=== PATIENT | male | born 1985 | race Caucasian/White ===

== ENCOUNTER → 2016-08-15 16:16 | Emergency (ER) | payer SELFPAY ==
[2016-08-15 17:42] VITALS: BP 140/76
== END | disposition left against medical advice (07) ==
LOC: ED 16:16
DX: M54.2 Cervicalgia (principal); Z53.21 Procedure and treatment not carried out due to patient leaving prior to being seen by health care provider

== ENCOUNTER 2017-04-06 19:05 | Emergency (ER) | payer SELFPAY ==
--- NOTE | 2017-04-06 21:28 | RAD ---
INDICATION: Right knee pain COMPARISON: January 26, 2016 TECHNIQUE: AP, lateral, tunnel, and sunrise views were obtained. FINDINGS: The bony structures, joint spaces, and soft tissues are normal for age. IMPRESSION: NEGATIVE EXAMINATION.
[2017-04-06 21:58] VITALS: BP 126/76
--- NOTE | 2017-04-06 22:17 | ED ---
Lower Extremity - HPI Summary HPI Summary: Patient presents to the ED with CC of right knee pain. He states he was getting out of bed this afternoon (3 hours prior to arrival) and hooked the posterior part of his knee onto the edge of the bed and pulled the knee. He sustained an abrasion to the posterior knee and has not been able to walk since that time. He has injured the knee 10 years ago with a meniscal repair. He denies any and all other symptoms. Denies pain in the ankle, the thigh or the hips. He is a smoker, but is otherwise healthy. He denies numbness, tingling, color or temperature changes to the knee. Denies swelling. Pulses +2 bilaterally and cap refill < 2 sec. - History of Current Complaint Chief Complaint: EDExtremityLower Stated Complaint: RT KNEE INJURY Time Seen by Provider: 04/06/17 20:40 Hx Obtained From: Patient, Family/Critical Care Transport Nurse Mechanism Of Injury: Twisted Onset of Pain: Immediate Onset/Duration: Minutes Severity Initially: Moderate Severity Currently: Moderate Pain Intensity: 6 Pain Scale Used: 0-10 Numeric Timing: Constant Location: Is Discrete @ - posterior right knee Associated Signs And Symptoms: Positive: Bruising Alleviating Factor(s): Rest Able to Bear Weight: No - Risk Factors Gout Risk Factors: Male DVT Risk Factors: Negative Septic Arthritis Risk Factor: Negative - Allergies/Home Medications Allergies/Adverse Reactions: Allergies Allergy/AdvReac Type Severity Reaction Status Date / Time Amoxicillin Allergy Hives Verified 04/06/17 19:49 Penicillins Allergy Hives Verified 04/06/17 19:49 PMH/Surg Hx/FS Hx/Imm Hx Previously Healthy: Yes GI History: Reports: Hx Gall Bladder Disease - cholecystectomy - Surgical History Surgery Procedure, Year, and Place: CHOLECYSTECTOMY - Immunization History Hx Pertussis Vaccination: No Immunizations Up to Date: Unable to Obtain/Confirm Infectious Disease History: No Infectious Disease History: Denies: Traveled Outside the [place] in Last 30 Days - Family History Known Family History: Positive: Other - Stroke - Social History Occupation: Employed Full-time Lives: With Family Alcohol Use: Weekly Hx Substance Use: Yes Substance Use Type: Reports: Marijuana Substance Use Comment - Amount & Last Used: daily Hx Tobacco Use: Yes Smoking Status (MU): Heavy Every Day Tobacco Smoker Amount Used/How Often: 1 PPD Have You Smoked in the Last Year: Yes Review of Systems Constitutional: Negative Negative: Fever, Chills, Fatigue Eyes: Negative Respiratory: Negative Gastrointestinal: Negative Positive: no symptoms reported, see HPI Positive: Arthralgia, Myalgia Positive: Other - abrasion Neurological: Negative Psychological: Normal All Other Systems Reviewed And Are Negative: Yes Physical Exam Triage Information Reviewed: Yes Vital Signs On Initial Exam: Initial Vitals Temp Pulse Resp BP Pulse Ox 98.4 F 78 16 101/83 97 04/06/17 19:40 04/06/17 19:40 04/06/17 19:40 04/06/17 19:40 04/06/17 19:40 Vital Signs Reviewed: Yes Appearance: Positive: Well-Appearing, Well-Nourished Skin: Positive: Warm, Skin Color Reflects Adequate Perfusion, Other - abrasion to the posterior knee Head/Face: Positive: Normal Head/Face Inspection Eyes: Positive: EOMI, SOO, Conjunctiva Clear Neck: Positive: Supple, No Lymphadenopathy Respiratory/Lung Sounds: Positive: Clear to Auscultation, Breath Sounds Present Cardiovascular: Positive: RRR, Pulses are Symmetrical in both Upper and Lower Extremities Musculoskeletal: Positive: Pain @ - right posterior knee, Other - posterior knee pain with abrasion - unable to flex or extend d/t pain. Slight swelling noted. Neurological: Positive: Speech Normal Psychiatric: Positive: Normal Diagnostics - Vital Signs Vital Signs Temp Pulse Resp BP Pulse Ox 04/06/17 21:57 98.5 F 77 16 126/76 99 04/06/17 19:40 98.4 F 78 16 101/83 97 - Laboratory Lab Statement: Any lab studies that have been ordered have been reviewed, and results considered in the medical decision making process. Lower Extremity Course/Dx - Course Course Of Treatment: Due to patient pain around injury, physical exam was limited. Valgus and varus force without pain. No posterior sag sign, - posterior drawer test, - anterior drawer test. Quadriceps active test negative. Mcmurrys test not performed d/t patients instability. No laxity in the joint noted. No temperature change or pallor noted bilaterally. No ecchymosis noted over knee. No lesion or disruption of skin is seen. Unable to bear weight. Pulses intact bilaterally. No swelling or crepitus is noted. Since he is unable to bear weight, I have advised a knee immobilizer and crutches. He is to follow up with ortho. I have discussed the limitations of an xray and to further assess the extent of his injuries, he may need further imaging and an ortho consult. He is given referral. Treatment options explained to patient. Patient understands the plan, voices no concerns at this time and understands the return precatuions given to them if they develop any worsening or changing symptoms. They are OK for discharge at this time. VS stable on discharge. Primary care follow up as agreed on discharge. - Diagnoses Provider Diagnoses: Abrasion, Knee pain Discharge - Discharge Plan Condition: Stable Disposition: HOME Patient Education Materials: Knee Pain (ED) Referrals: Cesar Orr MD [Medical Doctor] - Cesar Xiong MD [Primary Care Provider] - Additional Instructions: Ibuprofen 600mg three times daily Ice to the area Knee immobilizer Crutches Bear weight as tolerated unless you are continuing to have pain
== END 2017-04-06 21:57 | disposition home or self-care (01) ==
LOC: ED 19:05
DX: S80.211A Abrasion, right knee, initial encounter (principal); M25.561 Pain in right knee; W22.8XXA Striking against or struck by other objects, initial encounter; Y92.9 Unspecified place or not applicable; F17.210 Nicotine dependence, cigarettes, uncomplicated
CPT/HCPCS: 99282

== ENCOUNTER 2017-10-01 08:00 | Emergency (ER) | payer SELFPAY ==
[2017-10-01] MEDS ORDERED: Lidocaine 2% VISCOUS* 15 ML UDC PO ONE (08:15)
[2017-10-01] MEDS ORDERED: Al Hydrox/Mg Hydrox/Simet LIQ* 30 ML UDC PO ONE (08:15)
[2017-10-01] MEDS ORDERED: Ondansetron ODT TAB* 4 MG PO ONE (08:16)
[2017-10-01 08:36] LABS: ABS Basophils 0 10^3/ul (0-0.2); ABS Eosinophils 0.2 10^3/ul (0-0.6); ABS Lymphocytes 1.8 10^3/ul (1.0-4.8); ABS Monocytes 0.8 10^3/ul (0-0.8); ABS Neutrophils 11.3 10^3/ul (1.5-7.7); ABS Nucleated RBC 0 10^3/ul; Eosinophil % 1.1 % (0-6); Hematocrit 45 % (42-52); Hemoglobin 15.1 g/dl (14.0-18.0); Lymphocyte % 12.6 % (25-47); Mean Corpuscular HGB Conc 34 g/dl (31-36); Mean Corpuscular Hemoglobin 30 pg (27-31); Mean Corpuscular Volume 90 fL (80-94); Mean Platelet Volume 8.3 um3 (7.4-10.4); Nucleated Red Blood Cells % 0; Platelet Count 242 10^3/ul (150-450); Red Blood Count 4.97 10^6/ul (4.00-5.40); Red Cell Distribution Width 14 % (10.5-15)
--- NOTE | 2017-10-01 08:46 | ED ---
Abdominal Pain/Male - HPI Summary HPI Summary: Patient is a 32-year-old male who presents emergency department for epigastric abdominal pain, nausea and vomiting. History from patient is limited during exam given his nausea and dry heaving. History was obtained from patient's family member. She notes that patient has been having epigastric pain and nausea and vomiting over the last 4 years. Clinically diagnosed with a "ulcer. " Has not seen GI for endoscopy. Patient reportedly has been to the ER numerous times for this complaint. Patient states he was prescribed medication for systemic states he is unable to afford them and is currently not taking any medications. Symptoms are moderate in severity. No current modifying factors. - History of Current Complaint Chief Complaint: EDAbdPain Stated Complaint: NAUSEA/VOMITING Time Seen by Provider: 10/01/17 08:06 Hx Obtained From: Patient, Family/Validation Intern Pain Intensity: 10 - Allergies/Home Medications Allergies/Adverse Reactions: Allergies Allergy/AdvReac Type Severity Reaction Status Date / Time amoxicillin Allergy Hives Verified 10/01/17 08:04 Penicillins Allergy Hives Verified 10/01/17 08:04 PMH/Surg Hx/FS Hx/Imm Hx Previously Healthy: Yes GI History: Reports: Hx Gall Bladder Disease - cholecystectomy - Surgical History Surgery Procedure, Year, and Place: CHOLECYSTECTOMY Infectious Disease History: No Infectious Disease History: Denies: Traveled Outside the [place] in Last 30 Days - Family History Known Family History: Positive: Other - Stroke - Social History Occupation: Works From/At Home Lives: With Family Alcohol Use: Weekly Hx Substance Use: Yes Substance Use Type: Reports: Marijuana Substance Use Comment - Amount & Last Used: daily Hx Tobacco Use: Yes Smoking Status (MU): Heavy Every Day Tobacco Smoker Amount Used/How Often: 1 PPD Have You Smoked in the Last Year: Yes Review of Systems Constitutional: Negative Cardiovascular: Negative Respiratory: Negative Positive: Abdominal Pain, Vomiting, Nausea. Negative: Diarrhea Neurological: Negative All Other Systems Reviewed And Are Negative: Yes Physical Exam Triage Information Reviewed: Yes Vital Signs On Initial Exam: Initial Vitals Temp Pulse Resp BP Pulse Ox 96.5 F 88 16 145/86 94 10/01/17 08:01 10/01/17 08:01 10/01/17 08:01 10/01/17 08:01 10/01/17 08:01 Vital Signs Reviewed: Yes Appearance: Positive: Pain Distress - Pt. sitting on bed spitting into a bucket. Family member present. Skin: Positive: Warm, Dry Head/Face: Positive: Normal Head/Face Inspection Eyes: Positive: Normal Neck: Positive: Supple Neurological: Positive: Normal, CN Intact II-III Psychiatric: Positive: Affect/Mood Appropriate Diagnostics - Vital Signs Vital Signs Temp Pulse Resp BP Pulse Ox 10/01/17 08:01 96.5 F 88 16 145/86 94 - Laboratory Lab Results: Lab Results 10/01/17 Range/Units 08:20 WBC 14.0 H (3.5-10.8) 10^3/ul RBC 4.97 (4.00-5.40) 10^6/ul Hgb 15.1 (14.0-18.0) g/dl Hct 45 (42-52) % MCV 90 (80-94) fL MCH 30 (27-31) pg MCHC 34 (31-36) g/dl RDW 14 (10.5-15) % Plt Count 242 (150-450) 10^3/ul MPV 8.3 (7.4-10.4) um3 Neut % (Auto) 80.3 (38-83) % Lymph % (Auto) 12.6 L (25-47) % [place] % (Auto) 5.7 (0-7) % Eos % (Auto) 1.1 (0-6) % Baso % (Auto) 0.3 (0-2) % Absolute Neuts (auto) 11.3 H (1.5-7.7) 10^3/ul Absolute Lymphs (auto) 1.8 (1.0-4.8) 10^3/ul Absolute Monos (auto) 0.8 (0-0.8) 10^3/ul Absolute Eos (auto) 0.2 (0-0.6) 10^3/ul Absolute Basos (auto) 0 (0-0.2) 10^3/ul Absolute Nucleated RBC 0 10^3/ul Nucleated RBC % 0 Result Diagrams: 10/01/17 08:20 10/01/17 08:20 Lab Statement: Any lab studies that have been ordered have been reviewed, and results considered in the medical decision making process. Abdominal Pain Fem Course/Dx - Course Course Of Treatment: Pt. presenting to the ER for exacerbation of chronic N/V and epigastric pain. Afebrile with stable vital signs. Initial exam was limited due to pt.'s discomfort and lack of cooperation. Pt. is requesting zofran and GI cocktail as those have improved his sx in the past. Will check basic labs and reassess. Pt.'s family member states that he has been seen at [facility] numerous times this week for the same complaint. Labs are unremarkable other than WBC of 15k, suscept stress reaction. Pt. had no relief of pain after zofran and GI cocktail. Pt. can be heard yelling and cursing from his room. He is very agitated and is still dry heaving. Phenergan was ordered but patient declined stating he did not want to take anything else PO and requested an IV. IV was placed and fluids were started. Reglan ordered. Case discussed with Dr. Najera who recommend ativan. Ativan was ordered but pt. fell asleep prior to receiving ativan. Pt. slept in the ER for about an hour. I woke him up and he stated he was feeling better. Will dc home with rx for omeprazole and reglan. Strongly advised to call PCP tomorrow for an apt. and referral to GI if symptoms change or worsen. Pt. and family understand and agree with plan. - Diagnoses Differential Diagnosis/HQI/PQRI: Appendicitis, Bowel Obstruction, Constipation, Gall Bladder Disease, Hepatitis, Ischemic Bowel, Pancreatitis Provider Diagnoses: Cyclic vomiting syndrome, GERD (gastroesophageal reflux disease) Discharge - Sign-Out/Discharge Documenting (check all that apply): Discharge/Admit/Transfer - Discharge Plan Condition: Good Disposition: HOME Prescriptions: Metoclopramide TAB* [Reglan TAB*] 10 mg PO Q6H #12 tab Omeprazole CAP* [Prilosec CAP* 20 MG] 20 mg PO DAILY #30 jose rafael. Patient Education Materials: Gastroesophageal Reflux Disease (ED), Cyclic Vomiting Syndrome (ED) Referrals: Tyrese RILEY,Cesar Beaulieu [Primary Care Provider] - Additional Instructions: Call your PCP tomorrow for an appointment Take medication as directed Return to ER if symptoms change or worsen - Billing Disposition and Condition Condition: GOOD Disposition: Home
[2017-10-01 08:53] LABS: EGFR Non-African American 123.7 (>60)
[2017-10-01] MEDS ORDERED: Promethazine TAB* 25 MG PO ONE (09:24)
[2017-10-01] MEDS ORDERED: Metoclopramide IV* 5 MG/ML 2 ML VIAL IV ONE (09:53)
[2017-10-01] MEDS ORDERED: NS 0.9% 1000 ML* 1,000 ML IV ONE ×2 (09:53→10:14)
[2017-10-01] MEDS ORDERED: Metoclopramide IV* 5 MG/ML 2 ML VIAL ONE (09:54)
[2017-10-01] MEDS ORDERED: LORazepam INJ* 2 MG/ML 1 ML VIAL IV PUSH ONE ×2 (10:13→10:15)
[2017-10-01 13:02] VITALS: BP 123/82
== END 2017-10-01 12:45 | disposition home or self-care (01) ==
LOC: ED 08:00
DX: G43.A0 Cyclical vomiting, in migraine, not intractable (principal); K21.9 Gastro-esophageal reflux disease without esophagitis; F17.200 Nicotine dependence, unspecified, uncomplicated; Z88.3 Allergy status to other anti-infective agents; Z88.0 Allergy status to penicillin
CPT/HCPCS: 36415; 80053; 83690; 85025; 96360; 96361; 99283; A9270-GY; J2765

== ENCOUNTER 2017-11-27 16:37 | Emergency (ER) | payer SELFPAY ==
[2017-11-27 17:48] VITALS: BP 112/82
== END 2017-11-27 18:53 | disposition left against medical advice (07) ==
LOC: ED 16:37
DX: R11.2 Nausea with vomiting, unspecified (principal); Z53.21 Procedure and treatment not carried out due to patient leaving prior to being seen by health care provider
CPT/HCPCS: 99281

== ENCOUNTER 2018-05-23 06:46 | Emergency (ER) | payer MEDICAID ==
[2018-05-23] MEDS ORDERED: Al Hydrox/Mg Hydrox/Simet LIQ* 30 ML UDC PO ONE (07:01)
[2018-05-23] MEDS ORDERED: Lidocaine 2% VISCOUS* 15 ML UDC PO ONE (07:01)
[2018-05-23] MEDS ORDERED: Ondansetron TAB* 4 MG PO ONE (07:02)
--- NOTE | 2018-05-23 07:09 | ED ---
Abdominal Pain/Male - HPI Summary HPI Summary: Pt. is a 32 y.o male who presents to the ER for epigastric pain, N/V, and CP. Pt. states he started with epigastric pain and vomiting last night. Pt. states today he developed diffuse CP. Pt. has had similar sxs in the past. Pt. notes daily THC smoking. He denies recent ETOH use. Pt. otherwise denies past medical hx. Symptoms are moderate in severity. - History of Current Complaint Chief Complaint: EDChestWallPain Stated Complaint: CHEST PAIN/VOMITING Time Seen by Provider: 05/23/18 06:55 Hx Obtained From: Patient Pain Intensity: 10 - Allergies/Home Medications Allergies/Adverse Reactions: Allergies Allergy/AdvReac Type Severity Reaction Status Date / Time amoxicillin Allergy Hives Verified 11/27/17 17:48 Penicillins Allergy Hives Verified 11/27/17 17:48 PMH/Surg Hx/FS Hx/Imm Hx Previously Healthy: Yes GI History: Reports: Hx Gall Bladder Disease - cholecystectomy - Surgical History Surgery Procedure, Year, and Place: CHOLECYSTECTOMY Infectious Disease History: No Infectious Disease History: Denies: Traveled Outside the [place] in Last 30 Days - Family History Known Family History: Positive: Other - Stroke, Non-Contributory - Social History Occupation: Unemployed Lives: With Family Alcohol Use: Weekly Hx Substance Use: Yes Substance Use Type: Reports: Marijuana Substance Use Comment - Amount & Last Used: daily Hx Tobacco Use: Yes Smoking Status (MU): Heavy Every Day Tobacco Smoker Amount Used/How Often: 1 PPD Have You Smoked in the Last Year: Yes Review of Systems Constitutional: Negative Negative: Fever, Chills Positive: Chest Pain Respiratory: Negative Positive: Abdominal Pain, Vomiting, Diarrhea, Nausea Neurological: Negative All Other Systems Reviewed And Are Negative: Yes Physical Exam Triage Information Reviewed: Yes Vital Signs On Initial Exam: Initial Vitals Temp Pulse Resp BP Pulse Ox 99 F 100 20 125/88 99 05/23/18 06:49 05/23/18 06:49 05/23/18 06:49 05/23/18 06:49 05/23/18 06:49 Vital Signs Reviewed: Yes Appearance: Positive: Pain Distress - Pt. rolling around on the stretcher. Pt. is not cooperative for exam. Demanding a drink as soon as I walked into room Skin: Positive: Warm, Dry Head/Face: Positive: Normal Head/Face Inspection Neck: Positive: Supple Abdomen Description: Positive: Other: - Abd. is soft with epigastric pain. No rebound tenderness or guarding. No pain at mcburney's point. Neurological: Positive: Normal, CN Intact II-III Psychiatric: Positive: Affect/Mood Appropriate Diagnostics - Vital Signs Vital Signs Temp Pulse Resp BP Pulse Ox 05/23/18 06:49 99 F 100 20 125/88 99 - Laboratory Result Diagrams: 05/23/18 07:21 05/23/18 07:21 Lab Statement: Any lab studies that have been ordered have been reviewed, and results considered in the medical decision making process. Abdominal Pain Male Course/Dx - Course Course Of Treatment: Pt. presenting eipigastric pain, N/V, and CP. Exam is very limited due to pt. not cooperating. Pt. demanding a drink. Pt. also demanding a GI cocktail stating this has helped in the past. Will check basic labs and ECG. PO zofran and GI cocktail ordered. ECG done at 07 shows a sinus rhythm of 79bpm, normal axis, no ST elevation or depression. 09: Pt. re-examined and is dry heaving and states he is having a lot epigastric pain. Pt. states he was feeling better after initial medication but his sxs have return. Will given him a dose of compazine and ativan. Labs show mild leukocytosis. Pt.'s sxs again improved. Will dc home with rx for antiemetic and protonix. Pt. notes he has seen GI in the past and strongly adivsed to call his GI for a close f.u apt as well as PCP. Advised to avoid drug and etoh use. Will return if sxs change or worsen. - Diagnoses Differential Diagnosis/HQI/PQRI: Appendicitis, Bowel Obstruction, Constipation, Gall Bladder Disease, Hepatitis, Pancreatitis, Peptic Ulcer Disease Provider Diagnoses: Cyclical vomiting Discharge - Sign-Out/Discharge Documenting (check all that apply): Patient Departure Patient Received Moderate/Deep Sedation with Procedure: No - Discharge Plan Condition: Improved Disposition: HOME Prescriptions: Pantoprazole TAB * [Protonix TAB*] 40 mg PO DAILY #14 tab Promethazine TAB* [Phenergan TAB*] 25 mg PO Q6H PRN #12 tab PRN Reason: Nausea Patient Education Materials: Acute Nausea and Vomiting (ED), Cyclic Vomiting Syndrome (ED) Referrals: Tyrese RILEY,Cesar Beaulieu [Primary Care Provider] - Additional Instructions: Call your PCP and GI doctor today to schedule a follow up appointment in 1-2 days Take medication as directed Avoid drug and alcohol use Return to ER if symptoms change or worsen - Billing Disposition and Condition Condition: IMPROVED Disposition: Home
[2018-05-23] MEDS ORDERED: NS 0.9% 1000 ML** 1,000 ML IV ONE (07:20)
[2018-05-23 07:32] LABS: ABS Basophils 0 10^3/ul (0-0.2); ABS Eosinophils 0 10^3/ul (0-0.6); ABS Lymphocytes 0.9 10^3/ul (1.0-4.8); ABS Monocytes 0.4 10^3/ul (0-0.8); ABS Neutrophils 10.3 10^3/ul (1.5-7.7); ABS Nucleated RBC 0 10^3/ul; Eosinophil % 0 %; Hematocrit 48 % (42-52); Hemoglobin 16.5 g/dl (14.0-18.0); Lymphocyte % 7.8 %; Mean Corpuscular HGB Conc 34 g/dl (31-36); Mean Corpuscular Hemoglobin 31 pg (27-31); Mean Corpuscular Volume 91 fL (80-94); Mean Platelet Volume 8.3 fL (7.4-10.4); Nucleated Red Blood Cells % 0; Platelet Count 263 10^3/ul (150-450); Red Blood Count 5.33 10^6/ul (4.00-5.40); Red Cell Distribution Width 14 % (10.5-15); White Blood Count 11.7 10^3/ul (3.5-10.8)
[2018-05-23 07:52] LABS: ALT 31 U/L (7-52); AST 15 U/L (13-39); Albumin 4.8 g/dL (3.2-5.2); Albumin/Globulin Ratio 1.8 (1-3); Alkaline Phosphatase 82 U/L (34-104); Anion Gap 13 mmol/L (2-11); BUN/Creatinine Ratio 19.5 (8-20); Blood Urea Nitrogen 16 mg/dL (6-24); C Reactive Protein 2.65 mg/L (<8.01); CO2 Carbon Dioxide 21 mmol/L (22-32); Calcium 10.3 mg/dL (8.6-10.3); Chloride 104 mmol/L (101-111); EGFR African American 130.9 (>60); EGFR Non-African American 108.2 (>60); Globulin 2.7 g/dL (2-4); Glucose 160 mg/dL (70-100); Potassium 3.6 mmol/L (3.5-5.0); Sodium 138 mmol/L (135-145); Total Protein 7.5 g/dL (6.4-8.9)
[2018-05-23] MEDS ORDERED: LORazepam INJ* 2 MG/ML 1 ML VIAL IV PUSH ONE (09:29)
[2018-05-23] MEDS ORDERED: PROCHLORPERAZINE INJ 5 MG/ML 2 ML VIAL IV ONE (09:29)
[2018-05-23 11:34] VITALS: BP 137/79
== END 2018-05-23 11:33 | disposition home or self-care (01) ==
LOC: ED 06:46
DX: G43.A0 Cyclical vomiting, in migraine, not intractable (principal); R10.13 Epigastric pain; R07.9 Chest pain, unspecified; Z88.0 Allergy status to penicillin; F17.210 Nicotine dependence, cigarettes, uncomplicated; R19.7 Diarrhea, unspecified
CPT/HCPCS: 36415; 80053; 83605; 83690; 84484; 85025; 86140; 93005; 96361; 96374; 96375; 99283; A9270-GY; J0780; J2060

== ENCOUNTER 2018-06-12 09:18 | Emergency (ER) | payer MEDICAID, OTHER ==
--- OUTSIDE RECORDS SUMMARY | 2018-06-12 09:26 | XMS REPORT | Continuity of Care Document ---
:1985 External Reference #:[id number] Author Name Leah Hernandez Care Team Providers Name Role Phone Cesar Xiong MD Primary Care Physician Unavailable Payers Date Identification Numbers Payment Provider Subscriber Effective: 2018 Policy Number: [id number] Medicaid [employer] Name: 1 1 [address] PayID: [id number] [place] [address] Expires: 2018 Policy Number: [id number] Seun [employer] Group Name: [id number] [address] PayID: [id number] [place] [address] Advance Directives Description No Information Available Problems Description No Information Family History Date Family Member(s) Observation Comments Mother Allergy to Eggs Social History Type Date Description Comments Sex Unknown Marital Status Significant Other Occupation Unemployed Tobacco Use Start: Unknown current cigarette smoker Smoking Status Reviewed: 05/25/18 current cigarette smoker ETOH Use Currently consumes alcohol Tobacco Use Start: Unknown Patient is a current smoker, smokes every day Recreational Drug Use Current Drug User Recreational Drug Use Regularly uses Marijuana Exercise Type/Frequency Exercises rarely Allergies, Adverse Reactions, Alerts Date Description Reaction Status Severity Comments 05/25/2018 Amoxicillin Active 05/25/2018 Penicillin Active Medications Medication Date Status Form Strength Qnty SIG Indications Ordering Provider Lidocaine 05/25/ Active Solution 2% 15ml as needed Mary Viscous 2019 AISHWARYA Elder Pantoprazole 05/25/ Active Tablets DR 40mg 30tabs take as Mary Sodium 2019 directed AISHWARYA Elder 30 minutes prior to meal once a day Ranitidine 150 05/25/ Active Tablets 150mg 180tab take Mary Maximum Strength 2019 s nightly AISHWARYA Elder Carafate 05/25/ Active Suspension 1GM/10ML 420ml 1 gram Mary 2019 (10 mL) AISHWARYA Elder four times per day on empty stomach as needed Promethazine HCL / Active Unknown 0000 Mylanta / Active Unknown 0000 Tums / Active Chewtabs 500mg 2 as Unknown 0000 needed for acid stomach Famotidine / Active Unknown 0000 Lidoderm / Active Unknown 0000 Lorazepam / Active as needed Unknown 0000 Metoclopramide / Active Unknown HCL 0000 Pantoprazole / Hx Unknown Sodium - 2018 Omeprazole / Hx Unknown - 2018 Immunizations Description No Information Available Vital Signs Date Vital Result Comment 05/25/2018 3:13pm Height 70 inches 5'10" Weight 180.00 lb Heart Rate 54 /min BP Systolic Sitting 112 mmHg BP Diastolic Sitting 70 mmHg Respiratory Rate 18 /min Body Temperature 95.8 F tympanic BMI (Body Mass Index) 25.8 kg/m2 Results Description No Information Available Procedures Description No Information Available Encounters Description No Information Available Plan of Treatment Future Appointment(s):06/11/2018 3:30 pm - Mary Elder NP at [facility] Gastroenterology
--- OUTSIDE RECORDS SUMMARY | 2018-06-12 09:26 | XMS REPORT | Continuity of Care Document ---
:1985 External Reference #:[id number] Author Name Leah Hernandez Care Team Providers Name Role Phone Cesar Xiong MD Primary Care Physician Unavailable Payers Date Identification Numbers Payment Provider Subscriber Effective: 2018 Policy Number: [id number] Medicaid [employer] Name: 1 1 [address] PayID: [id number] [place] [address] Expires: 2018 Policy Number: [id number] Seun [employer] Group Name: [id number] [address] PayID: [id number] [place] [address] Advance Directives Description No Information Available Problems [...] 05/25/ Active Suspension 1GM/10ML 420ml 1 gram aMry 2019 (10 mL) AISHWARYA Elder four times [...] 3:30 pm - Mary Elder NP at [facility]
[2018-06-12 10:18] VITALS: BP 121/71
--- NOTE | 2018-06-12 10:26 | UC ---
General HPI - HPI Summary HPI Summary: States he had blood work drawn 3 weeks ago in his left wrist - states it was painful when they were drawing blood and he asked them to stop but they continued. He has had pain and lumps over his forearm since then. He tried heat and ice for a few days but then gave up. States for the past few days, he has had pain with difficulty using his left hand. No fever. No n/V. Otherwise acting well. No change in sensation. Meds; REviewed - History of Current Complaint Chief Complaint: UCUpperExtremity Stated Complaint: WRIST PAIN Time Seen by Provider: 06/12/18 10:03 Pain Intensity: 9 - Allergy/Home Medications Allergies/Adverse Reactions: Allergies Allergy/AdvReac Type Severity Reaction Status Date / Time amoxicillin Allergy Hives Verified 06/12/18 09:48 Penicillins Allergy Hives Verified 06/12/18 09:48 Home Medications: Home Medications Famotidine 10 mg PO DAILY 06/12/18 [History Confirmed 06/12/18] Promethazine HCl 25 mg PO DAILY 06/12/18 [History Confirmed 06/12/18] Sucralfate [Carafate] 1 tab PO DAILY 06/12/18 [History Confirmed 06/12/18] raNITIdine HCl [Ranitidine HCl] 1 tab PO DAILY 06/12/18 [History Confirmed 06/12] PMH/Surg Hx/FS Hx/Imm Hx Previously Healthy: Yes GI/ History: Gastroesophageal Reflux - Surgical History Surgical History: Yes Surgery Procedure, Year, and Place: CHOLECYSTECTOMY. T&A. knee surgery - Family History Known Family History: Positive: Other - Stroke - Social History Alcohol Use: Weekly Substance Use Type: Marijuana Substance Use Comment - Amount & Last Used: daily Smoking Status (MU): Heavy Every Day Tobacco Smoker Amount Used/How Often: 1 PPD Have You Smoked in the Last Year: Yes Household Exposure Type: Cigarettes Review of Systems All Other Systems Reviewed And Are Negative: Yes Physical Exam Triage Information Reviewed: Yes Appearance: Well-Appearing Vital Signs: Initial Vital Signs Temp 97.8 F 06/12/18 09:41 Pulse 68 06/12/18 09:41 Resp 18 06/12/18 09:41 BP 121/71 06/12/18 09:41 Pulse Ox 96 06/12/18 09:41 Vital Signs Reviewed: Yes Eyes: Positive: Conjunctiva Clear Musculoskeletal: Positive: Other: - left hand - firmness/ropiness over two areas of superficial veins over dorsum of wrist and forearm. No signifcant edema, mild erythema and pain to the touch. Pain with hand rail transportation tabeler. No sensation deficit. Course/Dx - Course Course Of Treatment: This is a 32 yr old with pain since he had labs drawn over left wrist Assessment Superficial thrombophlebitis - possible secondary cellulitis Discussed getting an ultrasound but low yield. Patient did not want to wait for ultrasound. Plan Recommend heat or ice - whichever one provides the most relief at least 3x/day Recommend topical diclofenac as prescribed for pain Recommend keflex as prescribed for possible secondary infection If pain persists, recommend following up with Orthopedic hand surgeon - Diagnoses Provider Diagnosis: Superficial thrombophlebitis, Cellulitis Discharge - Sign-Out/Discharge Documenting (check all that apply): Patient Departure All imaging exams completed and their final reports reviewed: No Studies - Discharge Plan Condition: Good Disposition: HOME Prescriptions: Cephalexin CAP* [Keflex CAP*] 500 mg PO QID #28 cap Diclofenac Epolamine [Flector] 1 each TD BID #1 patch.[id number] Patient Education Materials: Superficial Thrombophlebitis (ED), Cellulitis (ED) Referrals: No Primary Care Phys,NOPCP [Primary Care Provider] - Additional Instructions: Recommend heat or ice - whichever one provides the most relief at least 3x/day Recommend topical diclofenac as prescribed for pain Recommend keflex as prescribed for possible secondary infection If pain persists, recommend following up with Orthopedic hand surgeon at [facility] [phone] - Billing Disposition and Condition Condition: GOOD Disposition: Home
== END 2018-06-12 10:43 | disposition home or self-care (01) ==
LOC: UCEAST 09:18
DX: I80.8 Phlebitis and thrombophlebitis of other sites (principal); L03.114 Cellulitis of left upper limb; K21.9 Gastro-esophageal reflux disease without esophagitis; F17.210 Nicotine dependence, cigarettes, uncomplicated; Z79.899 Other long term (current) drug therapy; Z88.0 Allergy status to penicillin
CPT/HCPCS: 99212; G0463

== ENCOUNTER 2018-06-17 08:38 | Emergency (ER) | payer MEDICAID ==
[2018-06-17] MEDS ORDERED: NS 0.9% 1000 ML** 1,000 ML IV ONE ×3 (08:53→10:38)
[2018-06-17] MEDS ORDERED: Ketorolac INJ* 30 MG/ML 1 ML VIAL IV PUSH ONE (08:53)
[2018-06-17] MEDS ORDERED: Ondansetron INJ* 2 MG/ML VIAL IV ONE ×2 (08:53→11:29)
[2018-06-17] MEDS ORDERED: Al Hydrox/Mg Hydrox/Simet LIQ* 30 ML UDC PO ONE (08:54)
[2018-06-17] MEDS ORDERED: Famotidine IV* 10 MG/ML 2 ML (20 mg) IV SLOW PU ONE (08:54)
[2018-06-17 09:14] LABS: Influenza A Molecular NEGATIVE (Negative); Influenza B Molecular NEGATIVE (Negative)
[2018-06-17 09:38] LABS: Hematocrit 47 % (36-46); Hemoglobin 16.1 g/dL (14.0-18.0); Mean Corpuscular HGB Conc 34 g/dL (31-36); Mean Corpuscular Hemoglobin 31 pg (27-31); Mean Corpuscular Volume 90 fL (80-94); Mean Platelet Volume 8.5 fL (7.4-10.4); Platelet Count 268 10^3/uL (150-450); Red Blood Count 5.23 10^6 /uL (4.18-5.48); Red Cell Distribution Width 14 % (10.5-15); White Blood Count 14.4 10^3/uL (3.5-10.8)
--- NOTE | 2018-06-17 09:39 | ED ---
HPI Febrile Illness - HPI Summary HPI Summary: Patient is a 32-year-old male with a history of cyclic vomiting syndrome presenting to the ED with a 2 day history of nausea, vomiting, severe abdominal pain diffusely throughout, subjective fevers, sweats without chills. He states he has not smoked marijuana since his last admission to the hospital for same. He denies any weakness. Denies any confusion, headache, neck stiffness or pain , photophobia. He is diaphoretic on arrival and tearful. - History of Current Complaint Chief Complaint: EDFluSymptoms Time Seen by Provider: 06/17/18 08:44 Hx Obtained From: Patient Onset/Duration: Started Days Ago Timing: Constant Initial Severity: Moderate Current Severity: Moderate Pain Intensity: 10 Pain Scale Used: 0-10 Numeric Aggravating Factors: Nothing Alleviating Factors: Nothing - Risk Factors Pseudomonas Risk Factors: Negative Serious Bacterial Infection Risk Factors: Negative - Allergy/Home Medications Allergies/Adverse Reactions: Allergies Allergy/AdvReac Type Severity Reaction Status Date / Time amoxicillin Allergy Hives Verified 06/17/18 08:43 Penicillins Allergy Hives Verified 06/17/18 08:43 PMH/Surg Hx/FS Hx/Imm Hx Previously Healthy: Yes GI History: Reports: Hx Gall Bladder Disease - cholecystectomy, Other GI Disorders - bouts of N/V/D Psychiatric History: Reports: Hx Substance Abuse - marijuana - Surgical History Surgery Procedure, Year, and Place: CHOLECYSTECTOMY. T&A. knee surgery - Immunization History Hx Pertussis Vaccination: No Immunizations Up to Date: Yes Infectious Disease History: No Infectious Disease History: Denies: Traveled Outside the [place] in Last 30 Days - Family History Known Family History: Positive: Other - Stroke - Social History Occupation: Employed Full-time Lives: With Family Alcohol Use: Weekly Hx Substance Use: Yes Substance Use Type: Reports: Marijuana Substance Use Comment - Amount & Last Used: daily Hx Tobacco Use: Yes Smoking Status (MU): Heavy Every Day Tobacco Smoker Amount Used/How Often: 1 PPD Have You Smoked in the Last Year: Yes Review of Systems Positive: Fever, Skin Diaphoresis. Negative: Chills, Fatigue Negative: Palpitations, Chest Pain Negative: Shortness Of Breath, Cough Positive: Abdominal Pain, Vomiting, Nausea. Negative: Diarrhea Genitourinary: Negative Positive: no symptoms reported, see HPI Negative: Arthralgia, Myalgia Skin: Negative Positive: Anxious All Other Systems Reviewed And Are Negative: Yes Physical Exam Triage Information Reviewed: Yes Vital Signs On Initial Exam: Initial Vitals Temp Pulse Resp BP Pulse Ox 101.2 F 87 24 122/78 98 06/17/18 08:41 06/17/18 08:41 06/17/18 08:41 06/17/18 08:41 06/17/18 08:41 Vital Signs Reviewed: Yes Appearance: Positive: Well-Appearing, Well-Nourished Skin: Positive: Warm, Skin Color Reflects Adequate Perfusion Head/Face: Positive: Normal Head/Face Inspection Eyes: Positive: Normal, Conjunctiva Clear Neck: Positive: Supple, No Lymphadenopathy Respiratory/Lung Sounds: Positive: Clear to Auscultation, Breath Sounds Present Cardiovascular: Positive: RRR, Pulses are Symmetrical in both Upper and Lower Extremities Abdomen Description: Positive: Soft, Other: - Nontender to palpation throughout. Negative: CVA Tenderness (R), CVA Tenderness (L) Bowel Sounds: Positive: Present Musculoskeletal: Positive: Normal, Strength/ROM Intact Psychiatric: Positive: Normal, Affect/Mood Appropriate AVPU Assessment: Alert Diagnostics - Vital Signs Vital Signs Temp Pulse Resp BP Pulse Ox 06/17/18 09:27 83 120/88 98 06/17/18 09:22 87 98 06/17/18 08:41 101.2 F 87 24 122/78 98 - Laboratory Lab Results: Lab Results 06/17/18 Range/Units 09:02 Influenza A (Rapid) Negative (Negative) Influenza B (Rapid) Negative (Negative) Result Diagrams: 06/17/18 09:26 06/17/18 09:26 Lab Statement: Any lab studies that have been ordered have been reviewed, and results considered in the medical decision making process. Course/Dx - Course Course Of Treatment: During the stress of treatment, the patient is evaluated for nausea, vomiting, severe abdominal pain and sweats. Also has endorsing subjective fevers. Denies any chills. He is given 3L IV fluids, Zofran, Toradol, famotidine, Maalox plus. Labs obtained. Influenza negative. He is also given benadryl by request and also given morphine. He continues to request to be discharged despite discussing his results of leukocytosis and lactic acid. He has agreed to take the full 3L fluids and is requesting "GI cocktail" as prescription. He is given this as prescription and is OK for discharge at this time. He understands strict return precautions and at this time is diagnosed with cyclical vomiting syndrome. - Diagnoses Provider Diagnoses: Cyclic vomiting syndrome Discharge - Sign-Out/Discharge Documenting (check all that apply): Patient Departure Patient Received Moderate/Deep Sedation with Procedure: No - Discharge Plan Condition: Stable Disposition: HOME Prescriptions: Al Hydrox/Mg Hydrox/Simet LIQ* [Maalox Plus*] 30 ml PO Q4H PRN #360 udc MDD 180 PRN Reason: Pain Lidocaine 2% VISCOUS* [Xylocaine 2% Viscous*] 15 ml SWISH SPIT Q4H PRN #1 btl PRN Reason: Pain Ondansetron ODT TAB* [Zofran 4 MG Odt TAB*] 4 mg PO Q6H PRN #12 tab.odt MDD 4 PRN Reason: Nausea Patient Education Materials: Acute Nausea and Vomiting (ED), Abdominal Pain (ED ) Referrals: No Primary Care Phys,NOPCP [Primary Care Provider] - Additional Instructions: Drink plenty of fluids Eat gentle foods such as chicken noodle soup, rice, toast, applesauce and bananas zofran up to every 4 hours as needed for nausea Maalox plus every 4 hours for pain - Billing Disposition and Condition Condition: STABLE Disposition: Home
[2018-06-17 09:54] LABS: ALT 29 U/L (7-52); AST 16 U/L (13-39); Albumin 4.5 g/dL (3.2-5.2); Alkaline Phosphatase 86 U/L (34-104); Anion Gap 15 mmol/L (2-11); BUN/Creatinine Ratio 20.7 (8-20); Blood Urea Nitrogen 23 mg/dL (6-24); C Reactive Protein 1.27 mg/L (<8.01); CO2 Carbon Dioxide 26 mmol/L (22-32); Calcium 9.2 mg/dL (8.6-10.3); Chloride 94 mmol/L (101-111); EGFR African American 92.3 (>60); EGFR Non-African American 76.3 (>60); Globulin 2.3 g/dL (2-4); Glucose 138 mg/dL (70-100); Potassium 3.2 mmol/L (3.5-5.0); Sodium 135 mmol/L (135-145); Total Protein 6.8 g/dL (6.4-8.9)
[2018-06-17 09:55] LABS: Troponin I 0.01 ng/mL (<0.04)
[2018-06-17 10:14] LABS: ABS Basophils 0.1 10^3/ul (0-0.2); ABS Eosinophils 0 10^3/ul (0-0.6); ABS Lymphocytes 1.5 10^3/ul (1.0-4.8); ABS Monocytes 1.8 10^3/ul (0-0.8); ABS Neutrophils 11.1 10^3/ul (1.5-7.7); ABS Nucleated RBC 0 10^3/ul; Eosinophil % 0 %; Lymphocyte % 10.1 %; Nucleated Red Blood Cells % 0
[2018-06-17] MEDS ORDERED: Morphine 4 MG/ML VIAL (1 ml) 4 MG/ML VIAL IV ONE (11:29)
[2018-06-17] MEDS ORDERED: diPHENhydraMINE IV* 50 MG/ML 1 ml VIAL (BENADRYL) IV ONE (11:55)
[2018-06-17 12:54] VITALS: BP 128/60
== END 2018-06-17 12:53 | disposition home or self-care (01) ==
LOC: ED 08:38
DX: G43.A0 Cyclical vomiting, in migraine, not intractable (principal); R10.84 Generalized abdominal pain; R50.9 Fever, unspecified; R05 Cough; Z90.49 Acquired absence of other specified parts of digestive tract; Z88.0 Allergy status to penicillin; F17.210 Nicotine dependence, cigarettes, uncomplicated
CPT/HCPCS: 36415; 71046; 80053; 83605; 83690; 84484; 85025; 86140; 96361; 96374; 96375; 96376; 99282; A9270-GY; J1200; J1885; J2270; J2405

== ENCOUNTER 2018-06-18 07:44 | Observation (INO) | payer MEDICAID ==
[2018-06-18] MEDS ORDERED: Ondansetron INJ* 2 MG/ML VIAL IV ONE (08:00)
[2018-06-18] MEDS ORDERED: Morphine 4 MG/ML VIAL (1 ml) 4 MG/ML VIAL IV ONE (08:00)
[2018-06-18] MEDS: NS 0.9% 1000 ML** 2,000 ML IV ONE ×2 (08:05→08:06)
[2018-06-18] MEDS: Al Hydrox/Mg Hydrox/Simet LIQ* 30 ML UDC PO ONE ×2 (08:05→08:38)
[2018-06-18] MEDS: Lidocaine 2% VISCOUS* 15 ML UDC PO ONE ×2 (08:05→08:38)
[2018-06-18] MEDS ORDERED: Metoclopramide IV* 5 MG/ML 2 ML VIAL IV SLOW PU ONE (08:09)
[2018-06-18] MEDS ORDERED: diPHENhydraMINE IV* 50 MG/ML 1 ml VIAL (BENADRYL) IV ONE (08:23)
[2018-06-18 08:42] LABS: ABS Basophils 0.1 10^3/ul (0-0.2); ABS Eosinophils 0.1 10^3/ul (0-0.6); ABS Lymphocytes 1.7 10^3/ul (1.0-4.8); ABS Monocytes 1.2 10^3/ul (0-0.8); ABS Neutrophils 10.2 10^3/ul (1.5-7.7); ABS Nucleated RBC 0 10^3/ul; Eosinophil % 0.6 %; Hematocrit 45 % (36-46); Hemoglobin 15.3 g/dL (14.0-18.0); Lymphocyte % 12.8 %; Mean Corpuscular HGB Conc 34 g/dL (31-36); Mean Corpuscular Hemoglobin 31 pg (27-31); Mean Corpuscular Volume 91 fL (80-94); Mean Platelet Volume 8.4 fL (7.4-10.4); Nucleated Red Blood Cells % 0; Platelet Count 246 10^3/uL (150-450); Red Cell Distribution Width 14 % (10.5-15); White Blood Count 13.2 10^3/uL (3.5-10.8)
[2018-06-18] MEDS ORDERED: HYDROmorphone INJ1* 1 MG/ML SYRINGE IV ONE ×2 (08:45→09:22)
[2018-06-18 08:49] LABS: INR 1.06 (0.77-1.02)
[2018-06-18 09:01] LABS: ALT 25 U/L (7-52); AST 15 U/L (13-39); Albumin 4.2 g/dL (3.2-5.2); Albumin/Globulin Ratio 1.9 (1-3); Alkaline Phosphatase 82 U/L (34-104); Anion Gap 9 mmol/L (2-11); BUN/Creatinine Ratio 15.2 (8-20); Blood Urea Nitrogen 15 mg/dL (6-24); C Reactive Protein 1.15 mg/L (<8.01); CO2 Carbon Dioxide 26 mmol/L (22-32); Calcium 8.8 mg/dL (8.6-10.3); Chloride 105 mmol/L (101-111); EGFR African American 105.3 (>60); EGFR Non-African American 87.1 (>60); Globulin 2.2 g/dL (2-4); Glucose 109 mg/dL (70-100); Magnesium 2.1 mg/dL (1.9-2.7); Potassium 3.1 mmol/L (3.5-5.0); Sodium 140 mmol/L (135-145); Total Protein 6.4 g/dL (6.4-8.9)
--- NOTE | 2018-06-18 10:24 | ED ---
Nausea/Vomiting/Diarrhea HPI - HPI Summary HPI Summary: Patient is a 32-year-old male with history of cyclic vomiting syndrome presenting to the ED for the third time over the past week, twice in 2 days with severe diffuse abdominal pain, nausea, vomiting. Abdominal pain is most severe just above the umbilicus. He denies any hematemesis. He denies any recent illness, sweats or chills. Denies any subjective fevers. He states he vomits several times per hour and has been unable to sleep. While in the ED yesterday he was given 3 L fluids, Zofran and morphine. He states this improved his symptoms somewhat and he was discharged home with Zofran and Maalox. He returns today as this did not help him at home and he continues to complain of worsening symptoms. He is unable to drink. He is tearful on arrival. He states he has not had any marijuana since his last admission. - History of Current Complaint Chief Complaint: EDAbdPain Stated Complaint: VOMITING PER PT Time Seen by Provider: 06/18/18 07:46 Hx Obtained From: Patient Onset/Duration: Sudden Onset Timing: Constant Severity Initially: Severe Severity Currently: Severe Pain Intensity: 10 Pain Scale Used: 0-10 Numeric Location: Diffuse, Epigastric Character: Sharp, Cramping, Tearing Aggravating Factor(s): Food - Risk Factors Influenza Risk Factors: Negative Surgical Obstruction Risk Factor(s): Negative - Allergies/Home Medications Allergies/Adverse Reactions: Allergies Allergy/AdvReac Type Severity Reaction Status Date / Time amoxicillin Allergy Hives Verified 06/17/18 08:43 Penicillins Allergy Hives Verified 06/17/18 08:43 PMH/Surg Hx/FS Hx/Imm Hx Previously Healthy: Yes GI History: Reports: Hx Gall Bladder Disease - cholecystectomy, Other GI Disorders - bouts of N/V/D Psychiatric History: Reports: Hx Substance Abuse - marijuana - Surgical History Surgery Procedure, Year, and Place: CHOLECYSTECTOMY. T&A. knee surgery Infectious Disease History: No Infectious Disease History: Denies: Traveled Outside the [place] in Last 30 Days - Family History Known Family History: Positive: Other - Stroke - Social History Occupation: Employed Full-time Lives: With Family Alcohol Use: Weekly Hx Substance Use: Yes Substance Use Type: Reports: Marijuana Substance Use Comment - Amount & Last Used: occasionally Hx Tobacco Use: Yes Smoking Status (MU): Heavy Every Day Tobacco Smoker Amount Used/How Often: 1 PPD Have You Smoked in the Last Year: Yes Review of Systems Constitutional: Negative Negative: Fever, Chills, Fatigue, Skin Diaphoresis Negative: Palpitations, Chest Pain Negative: Shortness Of Breath, Cough Positive: Abdominal Pain, Vomiting, Nausea. Negative: Diarrhea Genitourinary: Negative Positive: no symptoms reported, see HPI Negative: Rash, Bruising Neurological: Negative All Other Systems Reviewed And Are Negative: Yes Physical Exam Triage Information Reviewed: Yes Vital Signs On Initial Exam: Initial Vitals Temp Pulse Resp BP Pulse Ox 98.2 F 76 18 153/90 97 06/18/18 07:46 06/18/18 07:46 06/18/18 07:46 06/18/18 07:46 06/18/18 07:46 Vital Signs Reviewed: Yes Appearance: Positive: Well-Appearing, Well-Nourished Skin: Positive: Skin Color Reflects Adequate Perfusion Head/Face: Positive: Normal Head/Face Inspection Eyes: Positive: EOMI, Conjunctiva Clear Neck: Positive: No Lymphadenopathy Respiratory/Lung Sounds: Positive: Clear to Auscultation, Breath Sounds Present Cardiovascular: Positive: Pulses are Symmetrical in both Upper and Lower Extremities Abdomen Description: Positive: Other: - epigastric pain - severe, N/V Bowel Sounds: Positive: Present Neurological: Positive: Sensory/Motor Intact, Alert, Oriented to Person Place, Time Psychiatric: Positive: Normal, Affect/Mood Appropriate AVPU Assessment: Alert Diagnostics - Vital Signs Vital Signs Temp Pulse Resp BP Pulse Ox 06/18/18 09:27 18 06/18/18 08:49 18 06/18/18 08:05 20 06/18/18 07:46 98.2 F 76 18 153/90 97 - Laboratory Lab Results: Lab Results 06/18/18 06/18/18 06/18/18 Range/Units 08:32 08:32 08:32 WBC 13.2 H (3.5-10.8) 10^3/uL RBC 5.00 (4.18-5.48) 10^6 /uL Hgb 15.3 (14.0-18.0) g/dL Hct 45 (36-46) % MCV 91 (80-94) fL MCH 31 (27-31) pg MCHC 34 (31-36) g/dL RDW 14 (10.5-15) % Plt Count 246 (150-450) 10^3/uL MPV 8.4 (7.4-10.4) fL Neut % (Auto) 77.1 % Lymph % (Auto) 12.8 % [place] % (Auto) 9.0 % Eos % (Auto) 0.6 % Baso % (Auto) 0.5 % Absolute Neuts (auto) 10.2 H (1.5-7.7) 10^3/ul Absolute Lymphs (auto) 1.7 (1.0-4.8) 10^3/ul Absolute Monos (auto) 1.2 H (0-0.8) 10^3/ul Absolute Eos (auto) 0.1 (0-0.6) 10^3/ul Absolute Basos (auto) 0.1 (0-0.2) 10^3/ul Absolute Nucleated RBC 0 10^3/ul Nucleated RBC % 0 INR (Anticoag Therapy) (0.77-1.02) Sodium 140 (135-145) mmol/L Potassium 3.1 L (3.5-5.0) mmol/L Chloride 105 (101-111) mmol/L Carbon Dioxide 26 (22-32) mmol/L Anion Gap 9 (2-11) mmol/L BUN 15 (6-24) mg/dL Creatinine 0.99 (0.67-1.17) mg/dL Est GFR ( Amer) 105.3 (>60) Est GFR (Non-Af Amer) 87.1 (>60) BUN/Creatinine Ratio 15.2 (8-20) Glucose 109 H (70-100) mg/dL Lactic Acid 2.3 H* (0.5-2.0) mmol/L Calcium 8.8 (8.6-10.3) mg/dL Magnesium 2.1 (1.9-2.7) mg/dL Total Bilirubin 0.70 (0.2-1.0) mg/dL AST 15 (13-39) U/L ALT 25 (7-52) U/L Alkaline Phosphatase 82 (34-104) U/L C-Reactive Protein 1.15 (<8.01) mg/L Total Protein 6.4 (6.4-8.9) g/dL Albumin 4.2 (3.2-5.2) g/dL Globulin 2.2 (2-4) g/dL Albumin/Globulin Ratio 1.9 (1-3) Lipase < 10 L (11.0-82.0) U/L 06/18/18 Range/Units 08:32 WBC (3.5-10.8) 10^3/uL RBC (4.18-5.48) 10^6 /uL Hgb (14.0-18.0) g/dL Hct (36-46) % MCV (80-94) fL MCH (27-31) pg MCHC (31-36) g/dL RDW (10.5-15) % Plt Count (150-450) 10^3/uL MPV (7.4-10.4) fL Neut % (Auto) % Lymph % (Auto) % [place] % (Auto) % Eos % (Auto) % Baso % (Auto) % Absolute Neuts (auto) (1.5-7.7) 10^3/ul Absolute Lymphs (auto) (1.0-4.8) 10^3/ul Absolute Monos (auto) (0-0.8) 10^3/ul Absolute Eos (auto) (0-0.6) 10^3/ul Absolute Basos (auto) (0-0.2) 10^3/ul Absolute Nucleated RBC 10^3/ul Nucleated RBC % INR (Anticoag Therapy) 1.06 H (0.77-1.02) Sodium (135-145) mmol/L Potassium (3.5-5.0) mmol/L Chloride (101-111) mmol/L Carbon Dioxide (22-32) mmol/L Anion Gap (2-11) mmol/L BUN (6-24) mg/dL Creatinine (0.67-1.17) mg/dL Est GFR ( Amer) (>60) Est GFR (Non-Af Amer) (>60) BUN/Creatinine Ratio (8-20) Glucose (70-100) mg/dL Lactic Acid (0.5-2.0) mmol/L Calcium (8.6-10.3) mg/dL Magnesium (1.9-2.7) mg/dL Total Bilirubin (0.2-1.0) mg/dL AST (13-39) U/L ALT (7-52) U/L Alkaline Phosphatase (34-104) U/L C-Reactive Protein (<8.01) mg/L Total Protein (6.4-8.9) g/dL Albumin (3.2-5.2) g/dL Globulin (2-4) g/dL Albumin/Globulin Ratio (1-3) Lipase (11.0-82.0) U/L Result Diagrams: 06/18/18 08:32 06/18/18 08:32 Lab Statement: Any lab studies that have been ordered have been reviewed, and results considered in the medical decision making process. Naus/Vom/Diarrhea Course/Dx - Course Course Of Treatment: During his course of treatment, the patient is evaluated for severe abdominal pain, nausea, vomiting not well controlled with at home by mouth medications. He has been seen 3 times in the last week for same. He has been diagnosed with cyclic vomiting syndrome in the past, however is adamant that he has not had any marijuana use since his last admission. He states he's been unable to eat or drink for over 1 week. He denies urinating for the past 24 hours. He is tearful on arrival. Labs obtained which show an elevated white count of 13.2, lactic 2.3, negative lipase of <10, glucose 109 and potassium of 3.1. Patient is given 2 L fluids, Zofran, Reglan, Maalox, morphine and 2 rounds of Dilaudid without much improvement. He continues to have nausea and vomiting and abdominal pain despite these measures. After approximately 3 hours of attempting to improve the patient's symptoms, ultimately it was decided to admit the patient for uncontrolled nausea, vomiting and abdominal pain. Spoke with Dr. Ribeiro who recommends drug screen as well and will see in the ED. - Differential Dx/Diagnosis Provider Diagnosis: Nausea & vomiting, Abdominal pain - Physician Notification/Consults Discussed Case/Management/Disposition Of Patient With: Polly Ribeiro Instructed by Provider To: Admit As Inpatient Discharge - Sign-Out/Discharge Documenting (check all that apply): Patient Departure Patient Received Moderate/Deep Sedation with Procedure: No - Discharge Plan Condition: Fair Disposition: ADMITTED TO [facility] Referrals: No Primary Care Phys,NOPCP [Primary Care Provider] - - Billing Disposition and Condition Condition: FAIR Disposition: Admitted to [facility]
[2018-06-18] MEDS ORDERED: Ondansetron INJ* 2 MG/ML VIAL IV PRN (11:28)
[2018-06-18] MEDS ORDERED: NS 0.9% 1000 ML** 1,000 ML IV SCH (11:30)
[2018-06-18] MEDS ORDERED: Enoxaparin(*) 40 MG/0.4 ML SYR SUBCUT SCH (12:00)
[2018-06-18] MEDS: Morphine 4 MG/ML VIAL (1 ml) 4 MG/ML VIAL IV PRN ×3 (12:37→20:42)
[2018-06-18 14:03] LABS: Urine Appearance Cloudy; Urine Bilirubin Negative (Negative); Urine Blood Negative (Negative); Urine Color Yellow; Urine Glucose Negative (Negative); Urine Ketones 1+ (Negative); Urine Nitrite Negative (Negative); Urine Protein Negative (Negative); Urine Specific Gravity 1.017 (1.010-1.030); Urine Urobilinogen Negative (Negative)
[2018-06-18 14:13] LABS: Barbiturates Urine Screen None Detected (None Detect); Benzodiazepine Urine Screen None Detected (None Detect); Urine Cannabinoids Screen Presumptive Positive (None Detect)
[2018-06-18] MEDS ORDERED: Al Hydrox/Mg Hydrox/Simet LIQ* 30 ML UDC PO PRN (14:51)
[2018-06-18] MEDS ORDERED: LORazepam TAB(*) 1 MG PO PRN (14:51)
[2018-06-18] MEDS ORDERED: Lidocaine 2% VISCOUS* 15 ML UDC SWISH SPIT PRN (14:51)
[2018-06-18] MEDS ORDERED: Ondansetron ODT TAB* 4 MG PO PRN (14:51)
[2018-06-18] MEDS ORDERED: Benzocaine/Menthol LOZ* 1 LOZENGE PO PRN (15:05)
[2018-06-18] MEDS ORDERED: diPHENhydraMINE PO* 50 MG PO PRN (15:06)
[2018-06-18] MEDS: Promethazine TAB* 25 MG PO SCH (15:25)
--- NOTE | 2018-06-18 15:25 | HP ---
CC: Dr. Cesar Xiong. * HISTORY AND PHYSICAL: DATE OF ADMISSION: 06/18/18 PRIMARY CARE PHYSICIAN: Dr. Cesar Xiong. ATTENDING PHYSICIAN: Dr. Polly Ribeiro * (dictated by TIFFANIE Cabrera) CHIEF COMPLAINT: Abdominal pain, nausea, and vomiting. HISTORY OF PRESENT ILLNESS: Josue Quiroz is a 32-year-old white male with past medical history of cyclical vomiting syndrome, who presents with abdominal pain , nausea, and vomiting for 4 days. The patient has an extensive history of periods of nausea and vomiting with abdominal pain. This most recent episode began on Monday, 4 days ago. The patient has been unable to even keep down small volumes of liquid without vomiting. He has not had had an appetite during this time, though he did attempt eating soup yesterday. He almost immediately vomited the soup. He has not had constipation or diarrhea during this time. Denies melena. He reports that his vomit has been clear with a green tinge to it. This morning he did notice some "black flecks" to the vomit. He denies bright red blood in both vomit and his stool. He has been taking copious amounts of p.r.n. antinausea and anti-vomiting medicine which have been prescribed by GI; these medications have not alleviated his symptoms. He had an appointment with GI roughly 2 weeks ago in which he was prescribed new medications. He has been taking them as directed. He was advised to discontinue smoking marijuana at this appointment. Today he does report that he has cut back on smoking marijuana, though he is still smoking marijuana about twice per week. He most recently smoked one day prior to onset of these symptoms. Additionally, he was seen at urgent care on 06/12/18 for wrist pain and as diagnosed with superficial thrombophlebitis. He was prescribed Keflex. He has been unable to take the Keflex since the nausea and vomiting began. He denies fever/chills, redness, pain, swelling to the wrist. He does believe that has improved since he started taking the Keflex. ED COURSE: The patient arrived to emergency department. His vital signs were 98.2 degrees Fahrenheit, 76 beats per minute, respiratory rate 18, O2 sat 97% on room air, blood pressure 153/90, blood pressure then improved to 109/63. The patient received 2 L of normal saline in the emergency department. He received GI cocktail of Zofran, Reglan, Benadryl. He also received Dilaudid, morphine, and Maalox. The hospitalists were asked to evaluate the patient for admission. PAST MEDICAL HISTORY: Cyclical vomiting syndrome. PAST SURGICAL HISTORY: Cholecystectomy, knee surgery. MEDICATIONS: 1. Maalox 30 mL p.o. q.4 hours p.r.n. nausea, vomiting. 2. Keflex 600 mg p.o. 4 times a day. 3. Famotidine 10 mg p.o. daily. 4. Viscous lidocaine 2%, 15 mL p.o. q.4 hours swish and spit p.r.n. nausea, vomiting. 5. Ativan 1 mg p.o. t.i.d. p.r.n. nausea, vomiting. 6. Zofran 4 mg p.o. q.6 hours p.r.n. nausea, vomiting. 7. Promethazine 25 mg p.o. daily. 8. Sucralfate 1 g p.o. daily. 9. Omeprazole 40 mg p.o. daily. ALLERGIES: AMOXICILLIN. FAMILY HISTORY: The patient denies history of gastrointestinal cancer in his family. He reports one of his grandfathers have history of TIAs and NV. SOCIAL HISTORY: The patient smokes 1 pack of cigarettes per day. He has been smoking approximately for 18 years. He denies alcohol use. Reports smoking marijuana approximately twice per week lately. Denies use of other illicit drugs. REVIEW OF SYSTEMS: An 11-point review of systems was completed and all pertinent positives and negatives are in the HPI. All other systems are negative. PHYSICAL EXAMINATION GENERAL: The patient is a thin young male in position in hospital stretcher, appearing in moderate distress. HEENT: Head normocephalic and atraumatic. Eyes: PERRLA. Sclerae anicteric. ENT: Mucous membranes are moist. Oropharynx without evident bleeding or erythema. NECK: Supple. No JVD. CARDIO: Regular rate and rhythm without murmurs, rubs, or gallops. LUNGS: Clear to auscultation. ABDOMEN: Has normoactive bowel sounds x4 quadrants. Abdomen is soft and nondistended. No masses or hepatosplenomegaly. Abdomen is tender to palpation in the epigastric region. NEUROLOGIC: Cranial nerves II through XII are grossly intact. The patient is alert and oriented x3. No focal deficits. PSYCH: Mood and affect are euthymic. DIAGNOSIS STUDIES AND LAB DATA: Abdomen and pelvis CT today without contrast. Impression: "No evidence for acute intraabdominal abnormality." White blood cell count 13.2, hemoglobin 15.3, hematocrit 45, platelet count 246. Sodium 140, potassium 3.1, chloride 105, carbon dioxide 26, BUN 15, creatinine 0.99, glucose 109. Lactic acid 2.3, lipase less than 10. AST 15, ALT 25, alk phos 82, total bili 0.7. ASSESSMENT AND PLAN: Josue Quiroz is a 32-year-old white male with past medical history of cyclical vomiting syndrome who presents to the emergency department with 4 days of abdominal pain, nausea, and vomiting. The patient will be admitted in observation for: 1. Abdominal pain and vomiting. Differential diagnosis includes cyclical vomiting syndrome/abdominal migraine, gastroenteritis, bowel obstruction, gastroparesis. Given the patient's history of cyclical vomiting syndrome, this is most likely the cause of his symptoms. Bowel obstruction was ruled out with CT abdomen and pelvis. Given that the patient does have a mild leukocytosis, it is reasonable to consider gastroenteritis. However, the patient does not have fever and has not reported symptomatic fever or chills over the past 4 days. Additionally, he has not experienced any diarrhea. To properly rule out gastroparesis, we will be checking hemoglobin A1c. The patient was seen by GI earlier this month and it was discussed with the patient to discontinue his marijuana use. The patient has not entirely discontinued his use as he is still smoking marijuana approximately twice a week. Last time he smoked was on the day prior to the onset of his symptoms. It is likely that this is the aggravator of this episode. In addition, the patient did mention that he had "black flecks" in his vomit. It is quite possible that he has a mild Debora- Rose tear. His hemoglobin is currently stable at 15.3. We will continue to monitor his hemoglobin. We will continue home viscous lidocaine which should alleviate any pain from esophageal irritation. We will continue to hydrate the patient; he has already received 2 L of normal saline. Pain control will continue with IV morphine q.4 hours p.r.n. pain. The patient is currently n.p.o., although we can increase his diet as tolerated. To continue other home GI meds, including famotidine omeprazole, sucralfate, promethazine, zofran, maalox, and ativan. 3. Hypokalemia. The likely explanation of the patient's hypokalemia is significant vomiting. He estimates he has vomited approximately 100 times in the past 4 days. Potassium is currently at 3.1 and will be replaced with 3 runs of 20 mEq IV potassium chloride. We will continue to monitor and we will recheck his BMP. 4. Superficial thrombophlebitis. The patient was diagnosed with superficial thrombophlebitis at urgent care on 06/12/18 with possible secondary cellulitis. He was prescribed Keflex and had taken approximately 3 to 4 days of doses prior to stopping due to his nausea and vomiting. He does feel that his symptoms have improved. There are no signs of thrombophlebitis at this time. No erythema, warmth or tenderness to his left wrist at this time. We will continue the Keflex he was prescribed outpatient and continue to monitor. He has denied fevers and chills. 5. FEN: Replacing potassium as described above. We will continue normal saline while the patient is n.p.o. 6. DVT prophylaxis: Lovenox daily. 7. Code status: The patient is full code. TIME SPENT: Time spent on this admission was approximately 50 minutes, approximately half of this was spent at the bedside. This case was reviewed by my attending, Dr. Polly Ribeiro, and she agrees with this plan of care. TIFFANIE CABRERA [id number]/[facility] #: [id number] [facility]ENTERMariana
[2018-06-18] MEDS: KCL 10 MEQ/50 ML IVPREMIX* 10 MEQ/50 ML BAG IV SCH ×3 (15:26→21:58)
[2018-06-18] MEDS: Nicotine PATCH 21 MG/24 HR* PATCH TRANSDERM SCH (16:52)
[2018-06-18] MEDS: Cephalexin CAP* 500 MG PO SCH ×2 (16:54→21:51)
[2018-06-18] MEDS ORDERED: Nicotine Patch Removal NOTE PATCH OFF SCH (21:00)
[2018-06-18 21:39] LABS: EGFR African American 157.2 (>60); EGFR Non-African American 129.9 (>60); Potassium 3.9 mmol/L (3.5-5.0)
[2018-06-18] MEDS ORDERED: KCL 10 MEQ/50 ML IVPREMIX* 10 MEQ/50 ML BAG ONE ×2 (21:58)
[2018-06-19] MEDS: Morphine 4 MG/ML VIAL (1 ml) 4 MG/ML VIAL IV PRN ×2 (00:25→06:30)
[2018-06-19 06:55] LABS: ABS Basophils 0 10^3/ul (0-0.2); ABS Eosinophils 0.2 10^3/ul (0-0.6); ABS Lymphocytes 2.3 10^3/ul (1.0-4.8); ABS Monocytes 0.9 10^3/ul (0-0.8); ABS Neutrophils 5.2 10^3/ul (1.5-7.7); ABS Nucleated RBC 0 10^3/ul; Eosinophil % 2.8 %; Hematocrit 41 % (36-46); Hemoglobin 13.8 g/dL (14.0-18.0); Lymphocyte % 26.7 %; Mean Corpuscular HGB Conc 34 g/dL (31-36); Mean Corpuscular Hemoglobin 31 pg (27-31); Mean Corpuscular Volume 92 fL (80-94); Mean Platelet Volume 8.5 fL (7.4-10.4); Nucleated Red Blood Cells % 0.1; Platelet Count 201 10^3/uL (150-450); Red Blood Count 4.41 10^6 /uL (4.18-5.48); Red Cell Distribution Width 14 % (10.5-15); White Blood Count 8.7 10^3/uL (3.5-10.8)
[2018-06-19 07:10] LABS: Albumin 3.6 g/dL (3.2-5.2); Albumin/Globulin Ratio 1.9 (1-3); BUN/Creatinine Ratio 14.7 (8-20); Calcium 8.3 mg/dL (8.6-10.3); EGFR African American 162.5 (>60); EGFR Non-African American 134.3 (>60); Globulin 1.9 g/dL (2-4); Indirect Bilirubin 0.4 mg/dL (0.3-1.0); Potassium 3.7 mmol/L (3.5-5.0); Total Bilirubin 0.5 mg/dL (0.2-1.0); Total Protein 5.5 g/dL (6.4-8.9)
[2018-06-19 07:52] VITALS: BP 122/79
[2018-06-19] MEDS ORDERED: Ketorolac INJ* 30 MG/ML 1 ML VIAL IV PUSH ONE (08:06)
--- NOTE | 2018-06-19 08:14 | PN ---
Subjective Date of Service: 06/19/18 Interval History: Patient reports his abdominal pain has resolved and wants to go home. Girlfirend at bedside. No vomiting since yesterday. Feels a little nauseous. No fever or chills. some soft stool but denies diarrhea, constipation. Objective Active Medications: Al Hydrox/Mg Hydrox/Simethicone (Maalox Plus*) 30 ml PO Q4H PRN PRN Reason: PAIN Cephalexin HCl (Keflex Cap*) 500 mg PO QID [facility] Last Admin: 06/18/18 21:51 Dose: 500 mg Diphenhydramine HCl (Benadryl Po*) 50 mg PO Q6H PRN PRN Reason: INSOMNIA Enoxaparin Sodium (Lovenox(*)) 40 mg SUBCUT Q24H [facility] Last Admin: 06/18/18 12:42 Dose: 40 mg Famotidine (Pepcid Tab*) 10 mg PO DAILY [facility] Sodium Chloride (Ns 0.9% 1000 Ml) 1,000 mls @ 150 mls/hr IV PER RATE [facility] Last Admin: 06/18/18 12:46 Dose: 150 mls/hr Lidocaine (Xylocaine 2% Viscous*) 15 ml SWISH SPIT Q4H PRN PRN Reason: PAIN Lorazepam (Ativan Tab(*)) 1 mg PO TID PRN PRN Reason: NAUSEA/VOMITING Morphine Sulfate (Morphine 4 Mg/Ml Vial (1 Ml)) 2 mg IV Q4H PRN PRN Reason: PAIN - MILD Last Admin: 06/19/18 06:30 Dose: 2 mg Nicotine (Nicotine Patch 21 Mg/24 Hr*) 1 patch TRANSDERM DAILY@0800 [facility] Last Admin: 06/18/18 16:52 Dose: 1 patch Ondansetron HCl (Zofran Inj*) 4 mg IV Q4H PRN PRN Reason: NAUSEA/VOMITING Last Admin: 06/19/18 06:37 Dose: 4 mg Ondansetron HCl (Zofran Odt Tab*) 4 mg PO Q6H PRN PRN Reason: NAUSEA Pharmacy Profile Note (Nicotine Patch Removal Note*) 1 note PATCH OFF 2100 [facility] Last Admin: 06/18/18 23:45 Dose: 1 note Promethazine HCl (Phenergan Tab*) 25 mg PO DAILY [facility] Last Admin: 06/18/18 15:25 Dose: 25 mg Sucralfate (Carafate*) 1 gm PO DAILY WILL[facility] Throat Lozenges (Chloraseptic Janessa*) 1 janessa PO Q6H PRN PRN Reason: SORE THROAT Last Admin: 06/18/18 15:26 Dose: 1 janessa Vital Signs - 8 hr 06/19/18 06/19/18 06/19/18 00:25 05:27 06:30 Temperature Pulse Rate Respiratory 16 14 18 Rate Blood Pressure (mmHg) O2 Sat by Pulse Oximetry 06/19/18 07:51 Temperature 98.4 F Pulse Rate 71 Respiratory 20 Rate Blood Pressure 122/79 (mmHg) O2 Sat by Pulse 95 Oximetry Oxygen Devices in Use Now: None Appearance: 32 yo male is A+O x3 laying in bed in NAD Eyes: No Scleral Icterus, PERRLA Ears/Nose/Mouth/Throat: Mucous Membranes Moist Neck: Trachea Midline Respiratory: Symmetrical Chest Expansion and Respiratory Effort, Clear to Auscultation Cardiovascular: NL Sounds; No Murmurs; No JVD, RRR, No Edema Abdominal: NL Sounds; No Tenderness; No Distention, - - no guarding, soft throughout Extremities: No Edema, No Clubbing, Cyanosis Skin: No Rash or Ulcers, No Nodules or Sclerosis Neurological: Alert and Oriented x 3, NL Sensation, NL Gait, NL Muscle Strength and Tone Lines/Tubes/Other Access: Clean, Dry and Intact Peripheral IV Nutrition: Taking PO's Result Diagrams: 06/19/18 06:21 06/19/18 06:21 Additional Lab and Data: Lab Results 06/18/18 06/18/18 06/18/18 Range/Units 08:32 08:32 08:32 WBC 13.2 H (3.5-10.8) 10^3/uL RBC 5.00 (4.18-5.48) 10^6 /uL Hgb 15.3 (14.0-18.0) g/dL Hct 45 (36-46) % MCV 91 (80-94) fL MCH 31 (27-31) pg MCHC 34 (31-36) g/dL RDW 14 (10.5-15) % Plt Count 246 (150-450) 10^3/uL MPV 8.4 (7.4-10.4) fL Neut % (Auto) 77.1 % Lymph % (Auto) 12.8 % [place] % (Auto) 9.0 % Eos % (Auto) 0.6 % Baso % (Auto) 0.5 % Absolute Neuts (auto) 10.2 H (1.5-7.7) 10^3/ul Absolute Lymphs (auto) 1.7 (1.0-4.8) 10^3/ul Absolute Monos (auto) 1.2 H (0-0.8) 10^3/ul Absolute Eos (auto) 0.1 (0-0.6) 10^3/ul Absolute Basos (auto) 0.1 (0-0.2) 10^3/ul Absolute Nucleated RBC 0 10^3/ul Nucleated RBC % 0 INR (Anticoag Therapy) (0.77-1.02) Sodium 140 (135-145) mmol/L Potassium 3.1 L (3.5-5.0) mmol/L Chloride 105 (101-111) mmol/L Carbon Dioxide 26 (22-32) mmol/L Anion Gap 9 (2-11) mmol/L BUN 15 (6-24) mg/dL Creatinine 0.99 (0.67-1.17) mg/dL Est GFR ( Amer) 105.3 (>60) Est GFR (Non-Af Amer) 87.1 (>60) BUN/Creatinine Ratio 15.2 (8-20) Glucose 109 H (70-100) mg/dL Lactic Acid 2.3 H* (0.5-2.0) mmol/L Calcium 8.8 (8.6-10.3) mg/dL Magnesium 2.1 (1.9-2.7) mg/dL Total Bilirubin 0.70 (0.2-1.0) mg/dL AST 15 (13-39) U/L ALT 25 (7-52) U/L Alkaline Phosphatase 82 (34-104) U/L C-Reactive Protein 1.15 (<8.01) mg/L Total Protein 6.4 (6.4-8.9) g/dL Albumin 4.2 (3.2-5.2) g/dL Globulin 2.2 (2-4) g/dL Albumin/Globulin Ratio 1.9 (1-3) Lipase < 10 L (11.0-82.0) U/L 06/18/18 Range/Units 08:32 WBC (3.5-10.8) 10^3/uL RBC (4.18-5.48) 10^6 /uL Hgb (14.0-18.0) g/dL Hct (36-46) % MCV (80-94) fL MCH (27-31) pg MCHC (31-36) g/dL RDW (10.5-15) % Plt Count (150-450) 10^3/uL MPV (7.4-10.4) fL Neut % (Auto) % Lymph % (Auto) % [place] % (Auto) % Eos % (Auto) % Baso % (Auto) % Absolute Neuts (auto) (1.5-7.7) 10^3/ul Absolute Lymphs (auto) (1.0-4.8) 10^3/ul Absolute Monos (auto) (0-0.8) 10^3/ul Absolute Eos (auto) (0-0.6) 10^3/ul Absolute Basos (auto) (0-0.2) 10^3/ul Absolute Nucleated RBC 10^3/ul Nucleated RBC % INR (Anticoag Therapy) 1.06 H (0.77-1.02) Sodium (135-145) mmol/L Potassium (3.5-5.0) mmol/L Chloride (101-111) mmol/L Carbon Dioxide (22-32) mmol/L Anion Gap (2-11) mmol/L BUN (6-24) mg/dL Creatinine (0.67-1.17) mg/dL Est GFR ( Amer) (>60) Est GFR (Non-Af Amer) (>60) BUN/Creatinine Ratio (8-20) Glucose (70-100) mg/dL Lactic Acid (0.5-2.0) mmol/L Calcium (8.6-10.3) mg/dL Magnesium (1.9-2.7) mg/dL Total Bilirubin (0.2-1.0) mg/dL AST (13-39) U/L ALT (7-52) U/L Alkaline Phosphatase (34-104) U/L C-Reactive Protein (<8.01) mg/L Total Protein (6.4-8.9) g/dL Albumin (3.2-5.2) g/dL Globulin (2-4) g/dL Albumin/Globulin Ratio (1-3) Lipase (11.0-82.0) U/L Assess/Plan/Problems-Billing Assessment: 32 yo male with a PMH of cyclic vomiting, marijuana chronic use, and tobacco abuse who presented to the ED on 06/18 with c/o 4 days of nausea, vomiting, abdominal pain - Patient Problems (1) Abdominal pain Comment: CT abdomen no acute pathology pain and N/V resolved. abd exam benign. suspect cyclic vomiting syndrome - possible food sensitivty? recommend cessation of cannabis which could be the cause - also try an elimination diet for 30 days removing alcohol, gluten, dairy , sugar, eggs. May benefit from motility agent Iberogast and pancreatic enzymes with meals. Discussed with patient and girlfriend at length Tobacco cessation Referred to GI - he has a hx of gastric ulcers and should have a follow up endoscopy - this was discussed with pt - no tenderness on exam (2) Cyclic vomiting syndrome Comment: see above (3) Superficial thrombophlebitis Comment: continue keflex - appears to be resolved (4) Tobacco abuse Comment: counseled to quit - 10 minutes (5) Full code status (6) DVT prophylaxis Status and Disposition: stable for DC to home.
[2018-06-19] MEDS ORDERED: NS 0.9% 1000 ML** 1,000 ML IV SCH (08:23)
[2018-06-19] MEDS ORDERED: Famotidine TAB* 20 MG PO SCH (09:00)
[2018-06-19] MEDS ORDERED: Sucralfate TAB* 1 GM PO SCH ×2 (09:00)
[2018-06-19] MEDS: Cephalexin CAP* 500 MG PO SCH (09:52)
[2018-06-19] MEDS: Nicotine PATCH 21 MG/24 HR* PATCH TRANSDERM SCH (09:52)
[2018-06-19] MEDS: Promethazine TAB* 25 MG PO SCH (09:53)
[2018-06-19] MEDS ORDERED: KCL 10 MEQ/50 ML IVPREMIX* 10 MEQ/50 ML BAG ONE (10:30)
--- NOTE | 2018-06-19 13:05 | DS ---
DATE OF ADMISSION: 06/18/2018. DATE OF DISCHARGE: 06/19/2018. PROVIDER: Dillon Gallegos NP. ATTENDING PHYSICIAN: Dr. Parks* (report dictated by Dillon Gallegos NP). PRIMARY CARE PHYSICIAN: No PCP, the patient is referred to [facility], however he is refusing obtaining a primary care provider at this time. DISCHARGE DIAGNOSIS: Abdominal pain, suspect cyclic vomiting syndrome. SECONDARY DIAGNOSIS: Status post cholecystectomy. HISTORY OF PRESENT ILLNESS/HOSPITAL COURSE: Please see history and physical by TIFFANIE Cabrera for full admission details. In summary, this is a 32-year- old male with a past medical history of cyclic vomiting syndrome who presented to the emergency department on 06/18/2018 with abdominal pain, nausea, and vomiting times four days. The patient has a history of cyclic vomiting syndrome for the past ten years in which he reports it is intermittent throughout the year, occasionally bringing him to the emergency department. He reports, however, in the last three to four months he has had one episode every month. He reported on admission that four days prior he was unable to keep small volumes of liquid, reported no appetite, and when ingesting anything into his stomach he would vomit. He denied diarrhea or constipation. He denied melena, bright red blood in the vomit or stool. He reported taking antinausea medication prior to coming in with some relief, but due to the pain and feeling dehydrate, he came to the emergency department for further evaluation. He did see GI roughly two weeks prior in which he prescribed Zofran. He also was advised to discontinue smoking marijuana at that appointment in which he reports he has cut back, but continues to smoke approximately twice a week. He reports he has been smoking for approximately 15 to 20 years. He was also seen at Urgent Care on 06/12/2018 for superficial thrombophlebitis in which he was prescribed Keflex. This appears to have resolved, but I do question if the Keflex triggered his cyclic vomiting syndrome. As well, he does continue to smoke cannabis. The patient was admitted to the Hospitalist Service for abdominal pain and intractable nausea and vomiting. The patient has not vomited since yesterday. This morning he did report some abdominal pain in which he was given Morphine per the primary nurse. This did not resolve the pain and the patient was going to get Toradol; however, in the meantime the patient's pain has resolved and he would like to be discharged home. I evaluated the patient at the bedside in which his girlfriend is at the bedside as well. The patient reports that his abdominal pain has resolved and has not vomited since yesterday. On abdominal exam, the patient's exam is benign, nontender, nondistended, soft throughout with no guarding. He does continue to have some nausea, but would like to be discharged home. His vital signs are stable and labs are within normal limits. Vital signs have stayed hemodynamically stable throughout observation. I did discuss with the patient at length that recommendation is to completely stop smoking cannabis as there is a link between cannabis ingestion and cyclic vomiting syndrome. As well, I did recommend that the patient follow-up with a histotechnologist for an upper endoscopy as he does have a history of gastric ulcers in the past. The patient reports at his baseline he frequently has pain in the morning when he wakes up, but if he "burps" then the pain usually feels better. I did recommend to the patient that he may benefit from a motility agent and pancreatic enzymes when he is eating and he was given a suggestion of trying these. As well, it is possible he may have a food sensitivity and did recommend a 30 day elimination diet, removing dairy, alcohol, sugar, gluten, in conjunction with cessation of tobacco abuse and cannabis abuse. Strong recommendation to be established with a primary care provider in which he states he will call [facility] for a new provider, but did not want us to set this up for him. DISCHARGE MEDICATIONS: 1. Carafate one tab p.o. daily. 2. Promethazine HCL 25 mg p.o. daily. 3. Zofran 4 mg p.o. q.6 hours prn. 4. Lidocaine 2% 15 ml q.4 hours prn. 5. Ativan 1 mg p.o. t.i.d. prn. 6. Pepcid 10 mg p.o. daily. 7. Keflex 500 mg p.o. q.i.d. (complete course that was previously prescribed as an outpatient). 8. Maalox Plus 30 ml p.o. q.4 hours prn. DISCHARGE PLAN: 1. Did recommend the patient follow-up with a histotechnologist for a follow- up upper endoscopy. 2. Strongly recommended being established with a primary care provider. He was given [facility]'s contact information. 3. Recommended follow-up with a director of rehabilitation and wellness and he could benefit from a 30 day elimination diet, slowly reintroducing foods back in to see if he a food sensitivity. As well, I do think the patient would benefit from pancreatic enzymes and a motility agent such as Iberogast with meals as these are safe and gentle. TIME SPENT: Approximately 60 minutes were spent on this discharge with greater than 50 percent spent at the bedside discussing discharge plan. DILLON GALLEGOS, MEDICAID BILLING SPECIALIST [id number]/CPS #: [id number] RAJAN
== END 2018-06-19 10:30 | disposition home or self-care (01) ==
LOC: ED 07:44 → MED 11:28
PROVIDERS: ADMIT Internal Medicine; ATTEND Internal Medicine
DX: R10.9 Unspecified abdominal pain (principal); Z90.49 Acquired absence of other specified parts of digestive tract; I80.9 Phlebitis and thrombophlebitis of unspecified site; G43.A0 Cyclical vomiting, in migraine, not intractable; F17.210 Nicotine dependence, cigarettes, uncomplicated; Z88.0 Allergy status to penicillin
CPT/HCPCS: 36415; 74176; 80048; 80053; 80076; 80307; 81003; 83036; 83605; 83690; 83735; 85025; 85610; 86140; 96361; 96372; 96374; 96375; 96376; 99284; A9270-GY; G0378; J1170; J1200; J1650; J1885; J2270; J2405; J2765; J3480

== ENCOUNTER 2018-07-12 14:19 | Emergency (ER) | payer OTHER, MEDICAID ==
--- OUTSIDE RECORDS SUMMARY | 2018-07-12 14:41 | XMS REPORT | Continuity of Care Document ---
:1985 External Reference #:[id number] Author Name Leah Hernandez Care Team Providers Name Role Phone Cesar Xiong MD Primary Care Physician Unavailable Payers Date Identification Numbers Payment Provider Subscriber Effective: 2018 Policy Number: [id number] Medicaid [employer] Name: 1 1 [address] PayID: [id number] [place] [address] Expires: 2018 Policy Number: [id number] [place] [employer] Name: [id number] [address] PayID: [id number] [place] [address] Advance Directives Description No Information Available Problems Date Description Provider Status Onset: 05/25/2018 Cyclical vomiting syndrome Mary Elder NP Active Family History Date Family Member(s) Observation Comments Mother Allergy to Eggs Social History Type Date Description Comments Sex Unknown Marital Status Significant Other Occupation Unemployed Tobacco Use Start: Unknown current cigarette smoker Smoking Status Reviewed: 06/20/18 current cigarette smoker ETOH Use Currently consumes alcohol Tobacco Use Start: Unknown Patient is a current smoker, smokes every day Recreational Drug Use Current Drug User Recreational Drug Use Regularly uses Marijuana Exercise Type/Frequency Exercises rarely Allergies, Adverse Reactions, Alerts Date Description Reaction Status Severity Comments 05/25/2018 Amoxicillin Active 05/25/2018 Penicillin Active Medications Medication Date Status Form Strength Qnty SIG Indications Ordering Provider Promethazine HCL 05/31/ Active Tablets 25mg 20tab 1 by Mary 2019 s mouth AISHWARYA Elder every 8 hours as needed nausea with headache Lidocaine 05/25/ Active Solution 2% 100ml as needed Mary Viscous 2019 AISHWARYA Elder Pantoprazole 05/25/ Active Tablets DR 40mg 30tab take as Mary Sodium 2018 s directed AISHWARYA Elder 30 minutes prior to meal once a day Ranitidine 150 05/25/ Active Tablets 150mg 180ta take Mary Maximum Strength 2018 bs nightly AISHWARYA Elder Carafate 05/25/ Active Suspension 1GM/10ML 420ml 1 gram Mary 2019 (10 mL) AISHWARYA Elder four times per day on empty stomach as needed Mylanta / Active Unknown 0000 Tums / Active Chewtabs 500mg 2 as Unknown 0000 needed for acid stomach Famotidine / Active Unknown 0000 Lidoderm / Active Unknown 0000 Lorazepam / Active as needed Unknown 0000 Metoclopramide / Active Unknown HCL 0000 Mintox / Active Suspension 200-200-20 Take 30ML Unknown 0000 mg/5ML By Mouth Every 4 Hours as Needed For Pain. Max Daily Dose 180ML Promethazine HCL / Hx 12uni 25mg 1 Unknown 0000 - ts tab by 05/31/ 2019 every 6 hours as needed Pantoprazole / Hx Unknown Sodium - 2018 Omeprazole / Hx Unknown 0000 - 2018 Immunizations Description No Information Available Vital Signs Date Vital Result Comment 06/20/2018 8:49am Height 70 inches 5'10" Weight 190.00 lb Heart Rate 88 /min BP Systolic 119 mmHg BP Diastolic 85 mmHg Respiratory Rate 18 /min Body Temperature 98.0 F O2 % BldC Oximetry 98 % BMI (Body Mass Index) 27.3 kg/m2 05/25/2018 3:13pm Height 70 inches 5'10" Weight 180.00 lb Heart Rate 54 /min BP Systolic Sitting 112 mmHg BP Diastolic Sitting 70 mmHg Respiratory Rate 18 /min Body Temperature 95.8 F tympanic BMI (Body Mass Index) 25.8 kg/m2 Results Description No Information Available Procedures Description No Information Available Encounters Type Date Location Provider Dx Diagnosis Office Visit 05/25/2018 [facility] Mary Elder NP R10.13 Epigastric pain 3:00p G43.A0 Cyclical vomiting, not intractable Plan of Treatment 05/25/2018 - Mary Elder NPR10.13 Epigastric painComments:Please try the tommy hard candy and peppermint tea.Please refrain from all energy drinks.I encourage you to drink plenty of fluids to keep hydrated.Please obtain your additional labs before your next visit in 2 weeks with me.If you have any other concerns please do not hesitate to call me.Thank you for using [facility].G43.A0 Cyclical vomiting, not intractableComments:Please try the tommy hard candy and peppermint tea.Please refrain from all energy drinks.I encourage you to drink plenty of fluids to keep hydrated.Please obtain your additional labs before your next visit in 2 weeks with me.If you have any other concerns please do not hesitate to call me.Thank you for using [facility].
[2018-07-12] MEDS ORDERED: NS 0.9% 1000 ML** 1,000 ML IV ONE ×2 (16:00→16:56)
[2018-07-12] MEDS ORDERED: PROCHLORPERAZINE INJ 5 MG/ML 2 ML VIAL IV ONE (16:00)
[2018-07-12] MEDS ORDERED: Lidocaine 2% VISCOUS* 15 ML UDC PO ONE (16:04)
[2018-07-12] MEDS ORDERED: Ketorolac INJ* 30 MG/ML 1 ML VIAL IV PUSH ONE (16:04)
[2018-07-12] MEDS ORDERED: Al Hydrox/Mg Hydrox/Simet LIQ* 30 ML UDC PO ONE (16:04)
[2018-07-12] MEDS ORDERED: LORazepam INJ* 2 MG/ML 1 ML VIAL IV PUSH ONE (16:04)
[2018-07-12] MEDS ORDERED: Pantoprazole IV* 40 MG IV ONE (16:04)
--- NOTE | 2018-07-12 16:05 | ED ---
GI/ HPI - HPI Summary HPI Summary: 32-year-old male presents with nausea and vomiting today. He has history of cyclic vomiting. he states pain is much worse than normal. He has been following up with GI and has follow-up in a week. has not had a scope. Currently on omeprazole and Pepcid. He states he's been cutting back on his marijuana. No new medications. Denies any fever. No chest pain shortness breath or cough. no urinary symptoms. pain is epigastric. did not eat anything that triggers the cyclic vomiting that he knows of. - History of Current Complaint Chief Complaint: EDNauseaVomitDiarrh Time Seen by Provider: 07/12/18 15:59 Stated Complaint: VOMITING, ABD PAIN PER GF Pain Intensity: 10 - Additional Pertinent History Primary Care Physician: [id number] - Allergy/Home Medications Allergies/Adverse Reactions: Allergies Allergy/AdvReac Type Severity Reaction Status Date / Time amoxicillin Allergy Hives Verified 07/12/18 15:58 Penicillins Allergy Hives Verified 07/12/18 15:58 PMH/Surg Hx/FS Hx/Imm Hx Endocrine/Hematology History: Denies: Hx Anticoagulant Therapy Respiratory History: Denies: Hx Asthma GI History: Reports: Hx Gall Bladder Disease - cholecystectomy, Other GI Disorders - bouts of N/V/D Sensory History: Denies: Hx Contacts or Glasses, Hx Hearing Aid Opthamlomology History: Denies: Hx Contacts or Glasses Psychiatric History: Reports: Hx Substance Abuse - marijuana - Surgical History Surgery Procedure, Year, and Place: CHOLECYSTECTOMY. T&A. knee surgery - Immunization History Immunizations Up to Date: Yes Infectious Disease History: No Infectious Disease History: Denies: Traveled Outside the [place] in Last 30 Days - Family History Known Family History: Positive: Other - Stroke - Social History Alcohol Use: Weekly Hx Substance Use: Yes Substance Use Type: Reports: Marijuana Substance Use Comment - Amount & Last Used: occasionally Hx Tobacco Use: Yes Smoking Status (MU): Heavy Every Day Tobacco Smoker Amount Used/How Often: 1 PPD Have You Smoked in the Last Year: Yes Review of Systems Positive: Chills. Negative: Fever Negative: Chest Pain Negative: Shortness Of Breath Positive: Abdominal Pain, Vomiting, Nausea. Negative: Diarrhea All Other Systems Reviewed And Are Negative: Yes Physical Exam Triage Information Reviewed: Yes Vital Signs On Initial Exam: Initial Vitals Temp Pulse Resp BP Pulse Ox 97.8 F 88 16 141/86 98 07/12/18 14:30 07/12/18 14:30 07/12/18 14:30 07/12/18 14:30 07/12/18 14:30 Vital Signs Reviewed: Yes Appearance: Positive: Well-Appearing - agitated Skin: Positive: Warm, Dry Head/Face: Positive: Normal Head/Face Inspection Eyes: Positive: Normal, EOMI, SOO, Conjunctiva Clear ENT: Positive: Normal ENT inspection, Pharynx normal, TMs normal Respiratory/Lung Sounds: Positive: Clear to Auscultation, Breath Sounds Present Cardiovascular: Positive: Normal, RRR Abdomen Description: Positive: Soft, Other: - mild epigastric tenderness Bowel Sounds: Positive: Present Musculoskeletal: Positive: Normal Neurological: Positive: Normal Psychiatric: Positive: Normal Diagnostics - Vital Signs Vital Signs Temp Pulse Resp BP Pulse Ox 07/12/18 14:30 97.8 F 88 16 141/86 98 - Laboratory Result Diagrams: 07/12/18 16:10 07/12/18 16:10 Lab Statement: Any lab studies that have been ordered have been reviewed, and results considered in the medical decision making process. Re-Evaluation - Re-Evaluation First Eval Re-Evaluation Time: 16:36 Comment: unable to evulated abd at this point Second Eval Re-Evaluation Time: 16:57 Change: Improved Comment: still nausea, has blanket over head, mild epigastric abd pain on exam Third Eval Re-Evaluation Time: 17:26 Comment: patient still has blanket off his head, will wait to see if meds work Fourth Eval Re-Evaluation Time: 18:42 Comment: Patient states nausea has improved. He has had no episodes of vomiting since receiving the Reglan. Continue to complain of abdominal pain. He feels as if he can probably go home however will have him attempt a PO fluid challenge. If he tolerates, will d/c to home otherwise will plan to admit. Fifth Eval Re-Evaluation Time: 20:25 Change: Improved Comment: Patient has been able to tolerate both PO fluids as well as some crackers and apple sauce with no further episodes of vomiting. Patient states he is out of his Zofran at home therefore will dispense 2 tabs to home and provide a prescription to be filled tomorrow. GIGU Course/Dx - Course Course Of Treatment: 32-year-old male presents with nausea and vomiting today. He has history of cyclic vomiting. he states pain is much worse than normal. He has been following up with GI and has follow-up in a week. has not had a scope. Currently on omeprazole and Pepcid. He states he's been cutting back on his marijuana. No new medications. Denies any fever. No chest pain shortness breath or cough. no urinary symptoms. pain is epigastric. did not eat anything that triggers the cyclic vomiting that he knows of. On exam initally presentation patient is vomiting so much will not let touch abd and he is very agitated. gave ativan, protonix, GI cocktail, toradol, and compazine and was able to examine abd. mild epigastric tenderness present. wbc normal. electrolytes normal except mg 1.7. crp normal. will give benadryl and reglan. patient will be signed out to Malcolm pending reevulation for symptoms for dispo. - Diagnoses Differential Diagnoses - Male: Gastroenteritis (Viral), Urinary Tract Infection , Vomiting Provider Diagnoses: Cyclic vomiting syndrome, Abdominal pain Discharge - Sign-Out/Discharge Documenting (check all that apply): Sign-Out Patient Signing out patient TO: Levi Dougherty Patient Received Moderate/Deep Sedation with Procedure: No - Discharge Plan Condition: Stable Disposition: HOME Prescriptions: Ondansetron [Ondansetron Odt] 4 mg PO Q6HR PRN #12 tab.rapdis PRN Reason: Nausea/Vomiting Patient Education Materials: Acute Abdominal Pain (ED), Cyclic Vomiting Syndrome (ED) Referrals: No Primary Care Phys,NOPCP [Primary Care Provider] - Additional Instructions: Take ondansetron (Zofran) 1 tab every 6 hours as needed for nausea or vomiting. Drink plenty of fluids. Try to drink small amounts frequently to avoid filling your stomach to full which can cause vomiting. If you are still having vomiting, start with a clear liquid diet including soup broths, Jello, popsicles, and tommy-marilyn with carbonation stirred out of it. You may then advance to a bland diet including saltine crackers, toast, bananas , rice, and applesauce. Then return to a normal diet as tolerated. Follow up here or with your film drying machine operator in 3-5 days if symptoms persist. Seek immediate medical attention in the emergency room if you develop fever greater than 100.5 F, have severe abdominal pain, persistent vomiting, blood in your vomit or stool, or any worsening of symptoms. - Billing Disposition and Condition Condition: STABLE Disposition: Home
[2018-07-12] MEDS ORDERED: Lorazepam PYXIS KEY ONE (16:17)
[2018-07-12] MEDS ORDERED: LORazepam INJ* 2 MG/ML 1 ML VIAL ONE (16:17)
[2018-07-12 16:25] LABS: ABS Basophils 0 10^3/ul (0-0.2); ABS Eosinophils 0.1 10^3/ul (0-0.6); ABS Lymphocytes 1.1 10^3/ul (1.0-4.8); ABS Monocytes 0.7 10^3/ul (0-0.8); ABS Neutrophils 7.1 10^3/ul (1.5-7.7); ABS Nucleated RBC 0 10^3/ul; Hematocrit 49 % (36-46); Hemoglobin 16.6 g/dL (14.0-18.0); Lymphocyte % 12.5 %; Mean Corpuscular HGB Conc 34 g/dL (31-36); Mean Corpuscular Hemoglobin 31 pg (27-31); Mean Corpuscular Volume 91 fL (80-94); Mean Platelet Volume 8.3 fL (7.4-10.4); Nucleated Red Blood Cells % 0.1; Platelet Count 252 10^3/uL (150-450); Red Blood Count 5.35 10^6 /uL (4.18-5.48); Red Cell Distribution Width 14 % (10.5-15); White Blood Count 9.1 10^3/uL (3.5-10.8)
[2018-07-12 16:37] LABS: Albumin 4.7 g/dL (3.2-5.2); Albumin/Globulin Ratio 1.7 (1-3); BUN/Creatinine Ratio 16.1 (8-20); C Reactive Protein 5.24 mg/L (<8.01); Calcium 9.6 mg/dL (8.6-10.3); EGFR African American 122.3 (>60); EGFR Non-African American 101.1 (>60); Globulin 2.8 g/dL (2-4); Magnesium 1.8 mg/dL (1.9-2.7); Potassium 3.9 mmol/L (3.5-5.0); Total Bilirubin 0.4 mg/dL (0.2-1.0); Total Protein 7.5 g/dL (6.4-8.9)
[2018-07-12] MEDS ORDERED: diPHENhydraMINE IV* 50 MG/ML 1 ml VIAL (BENADRYL) IV ONE (16:56)
[2018-07-12] MEDS ORDERED: Metoclopramide IV* 5 MG/ML 2 ML VIAL IV SLOW PU ONE (16:57)
[2018-07-12] MEDS ORDERED: Ondansetron ODT TAB* 4 MG PO ONE (20:29)
[2018-07-12 20:48] VITALS: BP 112/66
== END 2018-07-12 20:51 | disposition home or self-care (01) ==
LOC: ED 14:19
DX: G43.A0 Cyclical vomiting, in migraine, not intractable (principal); R10.9 Unspecified abdominal pain; F17.210 Nicotine dependence, cigarettes, uncomplicated; Z88.0 Allergy status to penicillin
CPT/HCPCS: 36415; 80053; 83605; 83690; 83735; 85025; 86140; 96361; 96374; 96375; 99284; A9270-GY; J0780; J1200; J1885; J2060; J2765

== ENCOUNTER 2018-08-09 03:45 | Observation (INO) | payer OTHER, MEDICAID ==
[2018-08-09] MEDS ORDERED: Ketorolac INJ* 30 MG/ML 1 ML VIAL IV PUSH ONE (04:02)
[2018-08-09] MEDS ORDERED: Metoclopramide IV* 5 MG/ML 2 ML VIAL IV SLOW PU ONE (04:02)
[2018-08-09] MEDS ORDERED: diPHENhydraMINE IV* 50 MG/ML 1 ml VIAL (BENADRYL) SLOW PUSH ONE (04:03)
[2018-08-09] MEDS ORDERED: Pantoprazole IV* 40 MG IV ONE (04:03)
--- NOTE | 2018-08-09 04:04 | ED ---
Abdominal Pain/Male - HPI Summary HPI Summary: This patient is a 33 year old M presenting to [facility] accompanied by family with a chief complaint of epigastric abd pain that began yesterday morning. The patient rates the pain 10/10 in severity. Symptoms aggravated by movement. Symptoms alleviated by nothing. Patient reports vomiting and nausea. - History of Current Complaint Chief Complaint: EDAbdPain Stated Complaint: ABD PAIN PER PT FREIND Time Seen by Provider: 08/09/18 03:55 Hx Obtained From: Patient Onset/Duration: Sudden Onset, Lasting Hours, Still Present Severity Initially: Severe Severity Currently: Severe Pain Intensity: 10 Pain Scale Used: 0-10 Numeric Location: Epigastric Radiates: No Aggravating Factor(s): Movement Alleviating Factor(s): Nothing Associated Signs And Symptoms: Positive: Nausea, Vomiting - Allergies/Home Medications Allergies/Adverse Reactions: Allergies Allergy/AdvReac Type Severity Reaction Status Date / Time amoxicillin Allergy Hives Verified 08/09/18 03:48 Penicillins Allergy Hives Verified 08/09/18 03:48 PMH/Surg Hx/FS Hx/Imm Hx Previously Healthy: No Endocrine/Hematology History: Denies: Hx Anticoagulant Therapy Respiratory History: Denies: Hx Asthma GI History: Reports: Hx Gall Bladder Disease - cholecystectomy, Other GI Disorders - bouts of N/V/D Sensory History: Denies: Hx Contacts or Glasses, Hx Hearing Aid Opthamlomology History: Denies: Hx Contacts or Glasses Psychiatric History: Reports: Hx Substance Abuse - marijuana - Surgical History Surgery Procedure, Year, and Place: CHOLECYSTECTOMY. T&A. knee surgery Infectious Disease History: No Infectious Disease History: Denies: Traveled Outside the [place] in Last 30 Days - Family History Known Family History: Positive: Other - Stroke - Social History Occupation: Unemployed Lives: With Family Alcohol Use: Weekly Hx Substance Use: Yes Substance Use Type: Reports: Marijuana Substance Use Comment - Amount & Last Used: occasionally Hx Tobacco Use: Yes Smoking Status (MU): Heavy Every Day Tobacco Smoker Amount Used/How Often: 1 PPD Have You Smoked in the Last Year: Yes Review of Systems Negative: Fever Positive: Abdominal Pain, Vomiting, Nausea All Other Systems Reviewed And Are Negative: Yes Physical Exam - Summary Physical Exam Summary: VITAL SIGNS: Reviewed. GENERAL: Patient is a well-developed and nourished male who is lying comfortable in the stretcher. Patient is not in any acute respiratory distress. HEAD AND FACE: No signs of trauma. No ecchymosis, hematomas or skull depressions. No sinus tenderness. EYES: PERRLA, EOMI x 2, No injected conjunctiva, no nystagmus. EARS: Hearing grossly intact. Ear canals and tympanic membranes are within normal limits. MOUTH: Oropharynx within normal limits. NECK: Supple, trachea is midline, no adenopathy, no JVD, no carotid bruit, no c- spine tenderness, neck with full ROM CHEST: Symmetric, no tenderness at palpation LUNGS: Clear to auscultation bilaterally. No wheezing or crackles. CVS: Regular rate and rhythm, S1 and S2 present, no murmurs or gallops appreciated. ABDOMEN: Soft, epigastric tenderness. No signs of distention. No rebound no guarding, and no masses palpated. Bowel sounds are normal. EXTREMITIES: FROM in all major joints, no edema, no cyanosis or clubbing. NEURO: Alert and oriented x 3. No acute neurological deficits. Speech is normal and follows commands. SKIN: Dry and warm Triage Information Reviewed: Yes Vital Signs On Initial Exam: Initial Vitals Temp Pulse Resp BP Pulse Ox 97.8 F 101 18 0/0 96 08/09/18 03:47 08/09/18 03:47 08/09/18 03:47 08/09/18 03:47 08/09/18 03:47 Vital Signs Reviewed: Yes Diagnostics - Vital Signs Vital Signs Temp Pulse Resp BP Pulse Ox 08/09/18 03:47 97.8 F 101 18 0/0 96 - Laboratory Result Diagrams: 08/09/18 04:19 08/09/18 04:19 Lab Statement: Any lab studies that have been ordered have been reviewed, and results considered in the medical decision making process. Abdominal Pain Male Course/Dx - Course Course Of Treatment: This patient is a 33 year old M presenting to [facility] accompanied by family with a chief complaint of epigastric abd pain that began yesterday morning. Physical Exam Findings: Epigastric tenderness. Bloodwork obtained. In the ED course the patient was given Protonix, fluids, morphine, reglan, lorazepam, toradol, and Benadryl. Consult with Dr. Velazquez (hospitalist) at 0545. He agrees to admit the patient for further evaluation. The patient is agreeable with this plan. - Diagnoses Provider Diagnoses: Cyclical vomiting - Provider Notifications Discussed Care Of Patient With: Cesar Velazquez Time Discussed With Above Provider: 05:45 Instructed by Provider To: Other - Consult with Dr. Velazquez (hospitalist) at 0545. He agrees to admit the patient for further evaluation. Discharge - Sign-Out/Discharge Documenting (check all that apply): Patient Departure - Admit to [facility] Patient Received Moderate/Deep Sedation with Procedure: No - Discharge Plan Condition: Stable Disposition: ADMITTED TO [facility] Referrals: No Primary Care Phys,NOPCP [Primary Care Provider] - - Attestation Statements Document Initiated by Scribe: Yes Documenting Scribe: Julissa Boothe Provider For Whom Scribe is Documenting (Include Credential): Dr. Mason Sheikh MD Scribe Attestation: I, Julissa Boothe, scribed for Dr. Mason Sheikh MD on 08/09/18 at 0548. Status of Scribe Document: Ready
[2018-08-09 04:26] LABS: ABS Eosinophils 0.3 10^3/ul (0-0.6); ABS Monocytes 0.8 10^3/ul (0-0.8); ABS Neutrophils 12.8 10^3/ul (1.5-7.7); Eosinophil % 2.1 %; Hematocrit 49 % (42-52); Hemoglobin 16.3 g/dL (14.0-18.0); Lymphocyte % 12.6 %; Mean Corpuscular HGB Conc 33 g/dL (31-36); Mean Corpuscular Hemoglobin 30 pg (27-31); Mean Corpuscular Volume 91 fL (80-94); Mean Platelet Volume 8.4 fL (7.4-10.4); Platelet Count 276 10^3/uL (150-450); Red Blood Count 5.39 10^6 /uL (4.18-5.48); Red Cell Distribution Width 14 % (10.5-15); White Blood Count 15.9 10^3/uL (3.5-10.8)
[2018-08-09] MEDS: NS 0.9% 1000 ML** 2,000 ML IV ONE (04:27)
[2018-08-09] MEDS ORDERED: Morphine 4 MG/ML VIAL (1 ml) 4 MG/ML VIAL IV ONE ×2 (04:29→05:43)
[2018-08-09] MEDS ORDERED: LORazepam INJ* 2 MG/ML 1 ML VIAL IV PUSH ONE (04:30)
[2018-08-09] MEDS ORDERED: Lorazepam PYXIS KEY PRN ×2 (04:30→06:23)
[2018-08-09] MEDS ORDERED: Lorazepam PYXIS KEY ONE (04:36)
[2018-08-09 04:42] LABS: ALT 33 U/L (7-52); AST 19 U/L (13-39); Albumin 4.6 g/dL (3.2-5.2); Albumin/Globulin Ratio 1.6 (1-3); Alkaline Phosphatase 84 U/L (34-104); Amylase 34 U/L (29-103); Anion Gap 8 mmol/L (2-11); BUN/Creatinine Ratio 18.8 (8-20); Blood Urea Nitrogen 16 mg/dL (6-24); C Reactive Protein < 1.00 mg/L (<8.01); CO2 Carbon Dioxide 22 mmol/L (22-32); Calcium 9.7 mg/dL (8.6-10.3); Chloride 109 mmol/L (101-111); EGFR African American 124.9 (>60); EGFR Non-African American 103.2 (>60); Globulin 2.8 g/dL (2-4); Glucose 146 mg/dL (70-100); Magnesium 1.9 mg/dL (1.9-2.7); Potassium 3.8 mmol/L (3.5-5.0); Sodium 139 mmol/L (135-145); Total Protein 7.4 g/dL (6.4-8.9)
[2018-08-09] MEDS ORDERED: Diazepam SYRINGE* 5 MG/ML 2 ML SYRINGE (10 MG total) IV ONE (06:03)
[2018-08-09] MEDS ORDERED: Diazepam INJ (NF) 5 MG/ML 10 ML VIAL (50 MG TOTAL) IV ONE (06:03)
[2018-08-09] MEDS ORDERED: Ondansetron INJ* 2 MG/ML VIAL IV PRN (06:22)
[2018-08-09] MEDS ORDERED: LORazepam INJ* 2 MG/ML 1 ML VIAL IV PUSH PRN (06:23)
[2018-08-09] MEDS ORDERED: Ketorolac INJ* 30 MG/ML 1 ML VIAL IV PUSH PRN (06:24)
[2018-08-09] MEDS ORDERED: Acetaminophen TAB* 325 MG PO PRN (06:27)
[2018-08-09] MEDS ORDERED: NS 0.9% 1000 ML** 1,000 ML IV SCH (06:30)
--- NOTE | 2018-08-09 08:58 | HP ---
ADMISSION HISTORY AND PHYSICAL: DATE OF ADMISSION: 08/08/18 PRIMARY CARE PROVIDER: None, although he thinks he has a new appointment with somebody in [place] next week. He also does have a insurance customer service specialist, but cannot name who. HEALTHCARE PROXY: Sue Castillo. CODE STATUS: Full. SOURCE OF INFORMATION: History obtained from interview with the patient and review of medical record. RELIABILITY OF PATIENT: Poor. CHIEF COMPLAINT: Nausea and vomiting. HISTORY OF PRESENT ILLNESS: This is a 33-year-old man with past medical history of cyclic vomiting syndrome, last hospital stay here 06/18/18 with the same, who woke up today with nausea and vomiting. This is typically how he presents with no prodrome, wakes up with nausea, vomiting, usually lasts for 1 to 4 days. It is always associated with pain. He does endorse pain today as well diffusely in his abdomen, but notes it is worse than previous episodes. Described as cramping, stabbing and twisting pain in his abdomen, but nonradiating. He has had decreased p.o. intake today prior to his presentation to the emergency room. He has had no bowel movement today, but he has had flatus. His last bowel movement was yesterday. He typically does move his bowels daily. He notes that the episodes of intractable vomiting and nausea are typically not associated with headaches, but he did have a headache at the start of his nausea and vomiting in this episode. Denies any recent fevers or chills, sick contacts, or changes in medications. He does endorse taking 2 medications from his insurance customer service specialist, but recently ran out, cannot say whether it was today, yesterday, or within the same week. He endorsed no blood or melena, but did endorse a single episode of hematemesis while in the emergency room that was unwitnessed. He additionally endorses photophobia, but no phonophobia. PAST MEDICAL HISTORY: Cyclic vomiting syndrome, cholecystectomy, knee surgery, and tonsillectomy. MEDICATIONS: He takes 2 medications, though he does not know what they are. ALLERGIES: To AMOXICILLIN and PENICILLIN. FAMILY HISTORY: Grandfather with an NC. SOCIAL HISTORY: One pack per day of tobacco for 18 years. Smokes marijuana 3 to 4 times per week, which is reduced from previous. He is currently unemployed. REVIEW OF SYSTEMS: As per HPI; otherwise, all other systems negative. PHYSICAL EXAMINATION GENERAL: In no apparent distress. Does develop nausea and vomiting during the course of our interview, so the author has to leave. When I return, he is asleep, did wake up and continue the exam. VITAL SIGNS: Blood pressure 110/70; not yet placed in the computer, heart rate ranging between 73 and 100, respiratory rate is 16, T-max is 97.8, 98% on room air. Of note, the patient has refused to maintain blood pressure cuff on his arm while in the emergency room. HEENT: His oropharynx is clear. He has dry mucous membranes. Sclerae are anicteric. LUNGS: Clear. HEART: He has regular rate and rhythm. ABDOMEN: Soft; it is tender diffusely, nondistended. Tenderness is most pronounced in the right lower quadrant. EXTREMITIES: Warm, well perfused without clubbing, cyanosis, or edema. NEUROLOGIC: He is alert and oriented x3. His cranial nerves II through XII are intact. DIAGNOSTIC STUDIES/LAB DATA: Labs reviewed. Notable for white blood cell count of 15.9. His BUN is 16, his creatinine is 0.85, glucose 146, lactic acid 2.0. Lipase 12, CRP is less than 1. ASSESSMENT AND PLAN: This is a 33-year-old man with past medical history of cyclic vomiting syndrome who presents with intractable nausea and vomiting as well as abdominal pain. 1. Nausea, vomiting, abdominal pain, most consistent with previous episodes of cyclic vomiting syndrome. Typically lasts between 1 and 4 days for this patient. The treatment is symptomatic and includes anxiolytics; for which we have prescribed Ativan, pain control; for which we have prescribed ketorolac. We should minimize narcotics as this can potentiate nausea and vomiting as well as has addictive potential. As well, Zofran, which we have prescribed a higher dose 8 mg q.8 hours and fluids. It should be noted that this patient's pain is worse than his previous episodes per his report. I have ordered an abdominal film. Appendicitis is on the differential. He does have an elevated white blood cell count and that should be considered if his pain worsens, does not improve, or there are other clinical features consistent with infection. However, currently, he has had no fever and his CRP is less than 1. It is a fairly sensitive laboratory test for any inflammation or infection. Additionally, I note that while his white blood cell count was not elevated in June, it was elevated in May and April with episodes of cyclic vomiting syndrome in the absence of appendicitis. 2. Tobacco abuse. Monitor. 3. Marijuana abuse. Counseled cessation; 3 to 4 times per week is drastically decreased from his previous baseline. He is currently precontemplative with cessation. 4. DVT prophylaxis. Ambulate ad kyung, low risk. [id number]/[facility] #: [id number] RAJAN
[2018-08-09 11:07] VITALS: BP 106/65
--- NOTE | 2018-08-09 20:22 | DS ---
DISCHARGE SUMMARY: DATE OF ADMISSION: 08/09/18 DATE OF DISCHARGE: 08/09/18 PRIMARY CARE PROVIDER: To be established with [facility]. PRINCIPAL DIAGNOSIS: Intractable nausea and vomiting. DISCHARGE MEDICATIONS: 1. Zofran ODT 4 mg p.o. q.6 hours p.r.n. nausea. 2. Protonix 40 mg p.o. daily. 3. Ranitidine 150 mg p.o. q.h.s. HOSPITAL COURSE: Mr. Quiroz is a 33-year-old male who presented to the emergency room on 08/09/18 with intractable nausea and vomiting that awakened him from sleep. The patient has a history of this. He states this is always a similar story where he is awakened from sleep with sudden onset of nausea and vomiting. This was no different. He also had abdominal pain which is similar to prior, but this time more severe. The patient was requesting IV narcotics for his abdominal pain. I informed the nurse that I did not feel that that was an appropriate indication for narcotic. His vomiting stopped prior to them arriving to the floor, which was several hours ago. At this point, the patient feels that he is stable for discharge home. A prescription for Zofran ODT was sent to the pharmacy for him. On the day of discharge, the patient is awake, alert, and oriented, sitting up in the bed, in no acute distress. Cardiac: Normal S1, S2, regular rate and rhythm. I did not perceive any murmurs. Lungs are clear. Abdomen is soft, nontender, nondistended. FOLLOWUP CONCERNS: The patient is being discharged home today, 08/09/18. ACTIVITY LEVEL: Activity level is as tolerated. DIET: Diet is regular as tolerated. CONDITION ON DISCHARGE: Stable. The patient's CAP nurse manager user experience will be working on getting the patient a primary care provider or getting established with [facility] until a primary care provider is able to be obtained. TIME SPENT: Twenty minutes was spent discharging this patient. [id number]/[facility] #: [id number] RAJAN
== END 2018-08-09 15:40 | disposition home or self-care (01) ==
LOC: ED 03:45 → MED 06:27
PROVIDERS: ADMIT Internal Medicine; ATTEND Hospitalist
DX: R11.2 Nausea with vomiting, unspecified (principal); Z88.0 Allergy status to penicillin; F17.210 Nicotine dependence, cigarettes, uncomplicated; R10.9 Unspecified abdominal pain
CPT/HCPCS: 36415; 74019; 80053; 82150; 83605; 83690; 83735; 85025; 86140; 96365; 96375; 96376; 99284; G0378; J1200; J1885; J2060; J2270; J2765; J3360

== ENCOUNTER 2018-12-09 13:08 | Emergency (ER) | payer MEDICAID, OTHER ==
[2018-12-09 13:34] VITALS: BP 110/69
--- NOTE | 2018-12-09 13:39 | UC ---
Skin Complaint HPI - HPI Summary HPI Summary: Getting lots of boils all over his skin for a few wks. has 'popped' a few on his back and R arm. his family does not have any of these boils. denies ivdu, fever, n/v. he feels some of the areas are very painful and red and warm. His R elbow is a bit painful and this was the area that he also popped. - History of Current Complaint Chief Complaint: UCSkin Time Seen by Provider: 12/09/18 13:33 Stated Complaint: WOUND ON LEG Hx Obtained From: Patient Pain Intensity: 6 Pain Scale Used: 0-10 Numeric Location: Diffuse Character: Pain, Redness, Painful Aggravating Factor(s): Touch Alleviating Factor(s): Nothing - Allergy/Home Medications Allergies/Adverse Reactions: Allergies Allergy/AdvReac Type Severity Reaction Status Date / Time amoxicillin Allergy Hives Verified 12/09/18 13:34 Penicillins Allergy Hives Verified 12/09/18 13:34 Home Medications: Home Medications Acetaminophen [Tylenol] 1,000 mg PO ONCE PRN 12/09/18 [History Confirmed ] Calcium Carbonate CHEW TAB* [Tums*] 500 mg PO BID PRN 12/09/18 [History Confirmed 12/09/18] Ibuprofen TAB* [Advil TAB*] 800 mg PO ONCE PRN 12/09/18 [History Confirmed 12/09] PMH/Surg Hx/FS Hx/Imm Hx - Additional Past Medical History Additional PMH: no chronic issues Previously Healthy: Yes Other History Of: Negative For: Anticoagulant Therapy - Surgical History Surgical History: Yes Surgery Procedure, Year, and Place: CHOLECYSTECTOMY. T&A. knee surgery - Family History Known Family History: Positive: Other - Stroke, Non-Contributory - Social History Alcohol Use: Rare Substance Use Type: Marijuana Substance Use Comment - Amount & Last Used: occasionally Smoking Status (MU): Heavy Every Day Tobacco Smoker Amount Used/How Often: 1 PPD Have You Smoked in the Last Year: Yes Household Exposure Type: Cigarettes Review of Systems All Other Systems Reviewed And Are Negative: Yes Constitutional: Negative: Fever Skin: Positive: Rash, Other. Negative: Bruising Respiratory: Negative: Shortness Of Breath Cardiovascular: Negative: Palpitations Gastrointestinal: Negative: Nausea Musculoskeletal: Positive: Arthralgia - r elbow pain Neurological: Negative: Weakness Physical Exam Triage Information Reviewed: Yes Appearance: Well-Appearing Vital Signs: Initial Vital Signs Temp 98.9 F 12/09/18 13:30 Pulse 85 12/09/18 13:30 Resp 16 12/09/18 13:30 BP 110/69 12/09/18 13:30 Pulse Ox 98 12/09/18 13:30 Vital Signs Reviewed: Yes Respiratory Exam: Normal Cardiovascular Exam: Normal Musculoskeletal: Positive: ROM Intact - R elbow w/ passive movement but significant pain. Neurological: Positive: Alert Skin: Positive: Significant Lesion(s) - diffuse scattered scabs and healing ruptured abscesses. significant redness/tenderness/warmth at R upper/inner thigh, R lower/inner thigh, R lateral antecubital area, and R upper buttocks. Course/Dx - Course Course Of Treatment: Diffuse and multipel scattered healed furuncles/carbuncles and few absceses that pt. has dealt w/ on his own. In addition he has significant cellulitic areas in R inner thigh x2 and R antecubital area. He is afebrile and Vitals good. We will rx doxy , give hibiclens and have strict instructions for 3-5 day f/u w/ a provider to ensure these areas are resolving OR if new areas developed into an abscess and then someone could do an appropriate I&D. I used a marker around the cellulitic areas on his R thigh. - Differential Diagnoses - Skin Complaint Differential Diagnoses: Abscess, Cellulitis, Other - Diagnoses Provider Diagnosis: Cellulitis, Carbuncle and furuncle of buttock Discharge ED - Sign-Out/Discharge Documenting (check all that apply): Patient Departure All imaging exams completed and their final reports reviewed: No Studies - Discharge Plan Condition: Good Disposition: HOME Prescriptions: Chlorhexidine Gluconate [Hibiclens] 15 ml TP WEEKLY PRN 30 Days #1 liquid PRN Reason: Rash DOXYcycline CAP(*) [DOXYcycline 100MG CAP(*)] 100 mg PO BID 10 Days #20 cap Ibuprofen [Ibu] 600 mg PO TID 10 Days #30 tablet Patient Education Materials: Cellulitis (ED) Referrals: No Primary Care Phys,NOPCP [Primary Care Provider] - Additional Instructions: Please follow up with a provider in 5 days to ensure improvement. - Billing Disposition and Condition Condition: GOOD Disposition: Home
== END 2018-12-09 14:10 | disposition home or self-care (01) ==
LOC: UCEAST 13:08
DX: L02.32 Furuncle of buttock (principal); L03.317 Cellulitis of buttock; F17.210 Nicotine dependence, cigarettes, uncomplicated; Z88.0 Allergy status to penicillin
CPT/HCPCS: 99212; G0463

== ENCOUNTER 2018-12-11 18:26 | Emergency (ER) | payer MEDICAID ==
[2018-12-11 18:34] VITALS: BP 121/75
--- NOTE | 2018-12-11 18:37 | UC ---
Skin Complaint HPI - HPI Summary HPI Summary: 33 yo male present for recheck of abscess. He tells me that he was seen here 2 days ago for two abscesses to his right leg and placed on doxycycline. Since that time the abscesses have collected and "come to a head" - much more painful. The redness has decreased. Denies fever or chills - History of Current Complaint Chief Complaint: UCSkin Time Seen by Provider: 12/11/18 18:36 Stated Complaint: SOFT TISSUE Onset/Duration: Gradual Onset Onset Severity: Moderate Current Severity: Severe Pain Intensity: 7 Pain Scale Used: 0-10 Numeric - Allergy/Home Medications Allergies/Adverse Reactions: Allergies Allergy/AdvReac Type Severity Reaction Status Date / Time amoxicillin Allergy Hives Verified 12/11/18 18:34 Penicillins Allergy Hives Verified 12/11/18 18:34 PMH/Surg Hx/FS Hx/Imm Hx - Additional Past Medical History Additional PMH: Cyclic vomiting Other History Of: Negative For: Anticoagulant Therapy - Surgical History Surgical History: Yes Surgery Procedure, Year, and Place: CHOLECYSTECTOMY. T&A. knee surgery - Family History Known Family History: Positive: Other - Stroke, Non-Contributory - Social History Lives: With Family Alcohol Use: Occasionally Substance Use Type: Marijuana Substance Use Comment - Amount & Last Used: daily Smoking Status (MU): Heavy Every Day Tobacco Smoker Amount Used/How Often: 1 PPD Have You Smoked in the Last Year: Yes Household Exposure Type: Cigarettes Review of Systems All Other Systems Reviewed And Are Negative: No Constitutional: Positive: Negative Skin: Positive: Other - Abscess right thigh Respiratory: Positive: Negative Cardiovascular: Positive: Negative Neurological: Positive: Negative Psychological: Positive: Negative Physical Exam - Summary Physical Exam Summary: GENERAL: NAD. WDWN. No pain distress. SKIN: RIGHT THIGH: Medial thigh with two abscesses 1) 3.0cm area of fluctuance, erythema, and induration with surround faint erythema decreased since the purple outline made 2 days ago. 2) 1.0cm abscess and area of fluctuance with mild surrounding erythema decreased since purple outline 2 days ago NECK: Supple. Nontender. No lymphadenopathy. CHEST: No accessory muscle use. Breathing comfortably and in no distress. CV: Pulses intact. Cap refill <2seconds NEURO: Alert. PSYCH: Age appropriate behavior. Triage Information Reviewed: Yes Vital Signs: Initial Vital Signs Temp 99.0 F 12/11/18 18:31 Pulse 88 12/11/18 18:31 Resp 18 12/11/18 18:31 BP 121/75 12/11/18 18:31 Pulse Ox 97 12/11/18 18:31 Vital Signs Reviewed: Yes Procedures - Incision and Drainage Right Thigh Anesthesia: Topical Instrument(s): Scalpel - #11 Packing: Other - None Course/Dx - Course Course Of Treatment: The procedure was explained to the pt and all questions were answered. A time out was performed, witnessed, and signed. The area was cleansed with an alcohol pad. 2mL of 2% lidocaine without epi was administered and good anesthetization was achieved. A #11 blade was used to make a 5mm incision at the central most part of the abscess. Copious purulent yellow material was expressed. Pt tolerated procedure well. Area bandaged with telfa. Advised to continue antibiotic as prescribed. Wound culture obtained and will be sent - Diagnoses Provider Diagnosis: Abscess of right thigh Discharge ED - Sign-Out/Discharge Documenting (check all that apply): Patient Departure All imaging exams completed and their final reports reviewed: No Studies - Discharge Plan Condition: Stable Disposition: HOME Patient Education Materials: Abscess (ED), Abscess Incision and Drainage (DC) Referrals: No Primary Care Phys,NOPCP [Primary Care Provider] - Additional Instructions: If you develop a fever, shortness of breath, chest pain, new or worsening symptoms - please call your PCP or go to the ED immediately. Continue taking your antibiotic as prescribed. Change the dressing daily until well healed - Billing Disposition and Condition Condition: STABLE Disposition: Home
[2018-12-11] MEDS ORDERED: Lidocaine 2% PF * 5 ML VIAL INJ ONE (18:40)
--- NOTE | 2018-12-13 12:59 | UC ---
- Progress Note Progress Note: Dec 13 2018 Culture MRSA positive from abscess. Patient on doxycycline according to chart. No change in current treatment. Nghia Olvera MD Course/Dx - Diagnoses Provider Diagnoses: Abscess of right thigh Discharge ED - Sign-Out/Discharge Documenting (check all that apply): Post-Discharge Follow Up All imaging exams completed and their final reports reviewed: No Studies - Discharge Plan Condition: Stable Disposition: HOME Patient Education Materials: Abscess (ED), Abscess Incision and Drainage (DC) Referrals: No Primary Care Phys,NOPCP [Primary Care Provider] - Additional Instructions: If you develop a fever, shortness of breath, chest pain, new or worsening symptoms - please call your PCP or go to the ED immediately. Continue taking your antibiotic as prescribed. Change the dressing daily until well healed - Billing Disposition and Condition Condition: STABLE Disposition: Home
--- NOTE | 2018-12-13 17:43 | UC ---
- Progress Note Progress Note: + MRSA + staph on doxy await sensitivity no change garima Course/Dx - Diagnoses Provider Diagnoses: Abscess of right thigh Discharge ED - Sign-Out/Discharge Documenting (check all that apply): Post-Discharge Follow Up All imaging exams completed and their final reports reviewed: No Studies - Discharge Plan Condition: Stable Disposition: HOME Patient Education Materials: Abscess (ED), Abscess Incision and Drainage (DC) Referrals: No Primary Care Phys,NOPCP [Primary Care Provider] - Additional Instructions: If you develop a fever, shortness of breath, chest pain, new or worsening symptoms - please call your PCP or go to the ED immediately. Continue taking your antibiotic as prescribed. Change the dressing daily until well healed - Billing Disposition and Condition Condition: STABLE Disposition: Home
== END 2018-12-11 19:05 | disposition home or self-care (01) ==
LOC: UCEAST 18:26
DX: L02.415 Cutaneous abscess of right lower limb (principal); F17.210 Nicotine dependence, cigarettes, uncomplicated; Z88.0 Allergy status to penicillin
CPT/HCPCS: 10060; 87070; 87077; 87186; 87205; 87640; 87641; 99211; G0463

== ENCOUNTER 2018-12-29 13:04 | Emergency (ER) | payer MEDICAID, OTHER ==
[2018-12-29] MEDS ORDERED: Pantoprazole IV* 40 MG IV ONE (13:12)
[2018-12-29] MEDS ORDERED: Metoclopramide IV* 5 MG/ML 2 ML VIAL IV ONE (13:12)
[2018-12-29] MEDS ORDERED: NS 0.9% 1000 ML** 1,000 ML IV ONE ×2 (13:12→15:01)
[2018-12-29] MEDS ORDERED: Ketorolac INJ* 15 MG/ML 1 ML VIAL IV ONE (13:12)
[2018-12-29] MEDS ORDERED: diPHENhydraMINE IV* 50 MG/ML 1 ml VIAL (BENADRYL) IV ONE (13:14)
--- NOTE | 2018-12-29 13:28 | ED ---
Abdominal Pain/Male - HPI Summary HPI Summary: The patient is a 33 y/o M arriving by ambulance to [facility] with a chief complaint of nausea, vomiting, and diffuse abdominal pain onset around 0000 this morning. He reports that hes had episodes of these symptoms before, and he was told that it is likely secondary to marijuana use. He continues to use marijuana now , but he has seen a airfield defence guard in [place] who prescribed him medications that he has since stopped taking because he believes they were worsening his symptoms. Currently, his symptoms are rated 6/10 in severity. Vomiting helps to alleviate the abdominal cramping. PMHx: cholecystectomy. Heavy every day smoker , occasional EtOH, marijuana use. Medications reviewed. Allergies noted. - History of Current Complaint Stated Complaint: VOMITING PER EMS Time Seen by Provider: 12/29/18 13:06 Hx Obtained From: Patient Onset/Duration: Sudden Onset, Lasting Hours - since 0000 this morning, Still Present Timing: Lasting Hours Severity Initially: Moderate Severity Currently: Moderate Pain Intensity: 6 Pain Scale Used: 0-10 Numeric Location: Diffuse Radiates: No Character: Cramping Aggravating Factor(s): Nothing Alleviating Factor(s): Vomiting Associated Signs And Symptoms: Positive: Nausea, Vomiting. Negative: Fever - Allergies/Home Medications Allergies/Adverse Reactions: Allergies Allergy/AdvReac Type Severity Reaction Status Date / Time amoxicillin Allergy Hives Verified 12/11/18 18:34 Penicillins Allergy Hives Verified 12/11/18 18:34 PMH/Surg Hx/FS Hx/Imm Hx Endocrine/Hematology History: Denies: Hx Anticoagulant Therapy, Hx Diabetes, Hx Thyroid Disease Cardiovascular History: Denies: Hx Hypercholesterolemia, Hx Hypertension Respiratory History: Denies: Hx Asthma, Hx Chronic Obstructive Pulmonary Disease (COPD) GI History: Reports: Hx Gall Bladder Disease - cholecystectomy, Other GI Disorders - bouts of N/V/D Denies: Hx Ulcer Sensory History: Denies: Hx Contacts or Glasses, Hx Hearing Aid Opthamlomology History: Denies: Hx Contacts or Glasses Psychiatric History: Reports: Hx Substance Abuse - marijuana - Surgical History Surgical History: Yes Surgery Procedure, Year, and Place: CHOLECYSTECTOMY. T&A. knee surgery Infectious Disease History: Denies: Hx Hepatitis, Hx Human Immunodeficiency Virus (HIV) - Family History Known Family History: Positive: Other - Stroke - Social History Alcohol Use: Occasionally Hx Substance Use: Yes Substance Use Type: Reports: Marijuana Substance Use Comment - Amount & Last Used: daily Hx Tobacco Use: Yes Smoking Status (MU): Heavy Every Day Tobacco Smoker Amount Used/How Often: 1 PPD Have You Smoked in the Last Year: Yes Review of Systems Negative: Fever Positive: Abdominal Pain - diffuse, Vomiting, Nausea All Other Systems Reviewed And Are Negative: Yes Physical Exam - Summary Physical Exam Summary: VITAL SIGNS: Reviewed. GENERAL: Patient is a well-developed and nourished male who is actively vomiting. Patient is not in any acute respiratory distress. HEAD AND FACE: Normocephalic and atraumatic. EYES: PERRLA, EOMI x 2, No injected conjunctiva. EARS: Hearing grossly intact. Ear canals and tympanic membranes are WNL. MOUTH: Oropharynx within normal limits. NECK: Supple, trachea is midline, no adenopathy, no JVD. CHEST: Symmetric, no tenderness at palpation. LUNGS: Clear to auscultation bilaterally. No wheezing or crackles. CVS: RRR, S1 and S2 present, no murmurs or gallops appreciated. ABDOMEN: Soft, non-tender. No signs of distention. Positive bowel sounds. No rebound, no guarding, and no masses palpated. No abdominal bruit or pulsations. EXTREMITIES: FROM in all major joints, no edema, no cyanosis or clubbing. NEURO: Alert and oriented x 3. No acute neurological deficits. Speech is normal. SKIN: Dry and warm. Triage Information Reviewed: Yes Vital Signs Reviewed: Yes Procedures - Sedation Patient Received Moderate/Deep Sedation with Procedure: No Diagnostics - Laboratory Result Diagrams: 12/29/18 13:22 12/29/18 13:22 Lab Statement: Any lab studies that have been ordered have been reviewed, and results considered in the medical decision making process. - Radiology Abdomen X-ray Radiology Interpretation Completed By: Radiologist Summary of Radiographic Findings: Impression: Negative exam. ED physician has reviewed this report. Re-Evaluation - Re-Evaluation First Eval Re-Evaluation Time: 14:20 Change: Unchanged Comment: Patient requesting GI cocktail. Second Eval Re-Evaluation Time: 16:40 Change: Unchanged Comment: Patient still vomiting, we will administer Zofran. Third Eval Re-Evaluation Time: 17:00 Change: Unchanged Comment: Patient would like to leave AMA. We discussed all risks of leaving prior to complete workup. Abdominal Pain Male Course/Dx - Course Assessment/Plan: Patient is a 33 y/o M with chief complaint of sudden onset nausea, vomiting, and diffuse abdominal pain onset at 0000 possibly secondary to continued marijuana use after being advised to stop. Blood work without any significant abnormality except for WBCs 14, glucose 144, magnesium 1.7. In the ED course, the patient was given IV fluids, Reglan, Protonix, for the nausea, vomiting, and abdominal pain. 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 The patient requested a GI cocktail and he seems to be feeling a little better. He had another episode of nausea; therefore the patient was given Zofran. I note the patient is angry, and he wants to sign AGAINST MEDICAL ADVICE. I extensively discussed with the patient the benefits and risk of leaving AMA. I also discussed the alternatives to leaving AMA, however, the patient still insists to leave the hospital AMA. The patient is clinically sober, free from distracting injury, appears to have intact insight and judgment and reason and in my opinion has the capacity to make decisions. Patient has full capacity and is cognitively intact. The patient presents with nausea, vomiting and abdominal pain, I have explained that I am concerned with his symptoms which may represent abnormal intra abdominal pathology, peritonitis and . The patient verbalizes understanding of my concerns. I have also explained the results of the labs and even though they are normal except for magnesium and elevated WBCs. The primary nurse and the charge nurse also strongly recommended that the patient should not leave AMA. Patient understands the risks of leaving AMA, which includes but is not restricted to . Patient signed the AMA form. Patient was also advised to return to ED if he changes his mind or if the symptoms worsen or other symptoms appear. Patient understands and agrees. Again, I discussed all the findings and test results with the patient. Patient was instructed to return to the emergency room immediately if any of the symptoms return or worsen. Plan of care was discussed with the patient and understands and agrees. All questions were answered at patient satisfaction. There were no further complaints or concerns. Patient signed AMA and he was discharged AMA. - Diagnoses Provider Diagnoses: Cyclic vomiting syndrome Discharge ED - Sign-Out/Discharge Documenting (check all that apply): Patient Departure - Patient leaving against medical advice. - Discharge Plan Condition: Stable Disposition: AGAINST MEDICAL ADVICE Patient Education Materials: Cyclic Vomiting Syndrome (ED) Referrals: Care [facility] [Outside] - 3 Days Additional Instructions: Follow up with your primary care provider in 2-3 days. Return to the emergency department for any new or worsening symptoms. - Billing Disposition and Condition Condition: STABLE Disposition: Against Medical Advice - Attestation Statements Document Initiated by Adityaibe: Yes Documenting Scribe: Aria Mensah Provider For Whom Jason is Documenting (Include Credential): Dr. Gian Steve MD Scribe Attestation: Aria Sosa scribed for Dr. Gian Steve MD on 12/30/18 at 0905. Scribe Documentation Reviewed: Yes Provider Attestation: The documentation as recorded by the Aria gao accurately reflects the service I personally performed and the decisions made by me, Dr. Gian Steve MD Status of Scribe Document: Viewed
[2018-12-29 13:33] VITALS: BP 121/94
[2018-12-29 13:37] LABS: ABS Basophils 0.1 10^3/ul (0-0.2); ABS Eosinophils 0.1 10^3/ul (0-0.6); ABS Lymphocytes 1.9 10^3/ul (1.0-4.8); ABS Monocytes 0.6 10^3/ul (0-0.8); ABS Neutrophils 11.3 10^3/ul (1.5-7.7); Eosinophil % 0.7 %; Hematocrit 47 % (42-52); Hemoglobin 15.6 g/dL (14.0-18.0); Lymphocyte % 13.8 %; Mean Corpuscular HGB Conc 33 g/dL (31-36); Mean Corpuscular Hemoglobin 30 pg (27-31); Mean Corpuscular Volume 90 fL (80-94); Mean Platelet Volume 8.3 fL (7.4-10.4); Nucleated Red Blood Cells % 0.1; Platelet Count 281 10^3/uL (150-450); Red Blood Count 5.16 10^6 /uL (4.18-5.48); Red Cell Distribution Width 14 % (10-15)
[2018-12-29 13:44] LABS: Urine Appearance Cloudy; Urine Bacteria Absent (Absent); Urine Bilirubin Negative (Negative); Urine Blood Negative (Negative); Urine Color Amber; Urine Glucose Negative (Negative); Urine Ketones Negative (Negative); Urine Nitrite Negative (Negative); Urine Protein 1+(30 mg/dL) (Negative); Urine Red Blood Cell Absent (Absent); Urine Specific Gravity 1.029 (1.010-1.030); Urine Squamous Epithelial Cell Present (Absent); Urine Urobilinogen Negative (Negative); Urine White Blood Cell Absent (Absent)
[2018-12-29 13:50] LABS: ALT 22 U/L (7-52); AST 14 U/L (13-39); Albumin 4.8 g/dL (3.2-5.2); Albumin/Globulin Ratio 1.9 (1-3); Alkaline Phosphatase 75 U/L (34-104); Amylase 75 U/L (29-103); Anion Gap 11 mmol/L (2-11); BUN/Creatinine Ratio 24.4 (8-20); Blood Urea Nitrogen 20 mg/dL (6-24); C Reactive Protein 2.75 mg/L (<8.01); CO2 Carbon Dioxide 22 mmol/L (22-32); Chloride 108 mmol/L (101-111); EGFR African American 130.1 (>60); EGFR Non-African American 107.6 (>60); Globulin 2.5 g/dL (2-4); Glucose 144 mg/dL (70-100); Magnesium 1.7 mg/dL (1.9-2.7); Potassium 3.9 mmol/L (3.5-5.0); Sodium 141 mmol/L (135-145); Total Protein 7.3 g/dL (6.4-8.9)
[2018-12-29 13:57] LABS: Urine Benzodiazepine Screen None Detected (None Detect); Urine Opiates Screen None Detected (None Detect)
[2018-12-29] MEDS ORDERED: Magnesium Sulfate 1 GM IV* 1 GM/100 ML BAG IV ONE (13:57)
[2018-12-29] MEDS ORDERED: Lidocaine 2% VISCOUS* 15 ML UDC PO ONE (14:23)
[2018-12-29] MEDS ORDERED: Al Hydrox/Mg Hydrox/Simet LIQ* 30 ML UDC PO ONE (14:23)
[2018-12-29] MEDS ORDERED: Ondansetron INJ* 2 MG/ML VIAL IV ONE (16:41)
== END 2018-12-29 17:00 | disposition left against medical advice (07) ==
LOC: ED 13:04
DX: R11.15 Cyclical vomiting syndrome unrelated to migraine (principal); F17.200 Nicotine dependence, unspecified, uncomplicated; Z90.49 Acquired absence of other specified parts of digestive tract; Z88.1 Allergy status to other antibiotic agents; Z88.0 Allergy status to penicillin
CPT/HCPCS: 36415; 74018; 80053; 80307; 81003; 81015; 82150; 83605; 83690; 83735; 85025; 86140; 96361; 96365; 96366; 96375; 99283; A9270-GY; J1200; J1885; J2405; J2765; J3475